=== PATIENT | male | born 1990 | race Hispanic/Latino ===

== ENCOUNTER 2016-08-12 16:41 | Inpatient (IN) | payer BC, MEDICAID ==
[2016-08-12 17:22] VITALS: BMI 30.6
[2016-08-12] MEDS ORDERED: Albuterol-Ipratrop 3 mg / 0.5 (3 ml) UD INH STA (17:53)
[2016-08-12] MEDS ORDERED: Sodium Chloride 0.9% 1,000 ML IV ONE (17:57)
[2016-08-12] MEDS ORDERED: Albuterol-Ipratrop 3 mg / 0.5 (3 ml) UD ONE (18:12)
[2016-08-12] MEDS ORDERED: Sodium Chloride 0.9% 1,000 ML ONE ×2 (18:15→18:43)
[2016-08-12 18:32] LABS: BASO # 0.1 K/uL (0.0-0.2); BASO % 0.5 % (0.0-2.0); EOS # 0.4 K/uL (0.0-0.7); EOS % 3.2 % (0.0-4.0); HEMATOCRIT 41.1 % (35.0-51.0); LYMPH # 2.1 K/uL (1.0-4.3); LYMPH % 15.4 % (20.0-40.0); MEAN CELL VOLUME 91.1 fL (80.0-94.0); MEAN CORPUSCULAR HEMOGLOBIN 30.1 pg (27.0-31.0); MEAN CORPUSCULAR HGB CONC 33.1 g/dL (33.0-37.0); MEAN PLATELET VOLUME 9.7 fL (7.2-11.7); MONO # 0.7 K/uL (0.0-0.8); MONO % 5.2 % (0.0-10.0); RED CELL DISTRIBUTION WIDTH 13.1 % (11.5-14.5); WHITE BLOOD COUNT 13.7 K/uL (4.8-10.8)
--- NOTE | 2016-08-12 18:40 | C.PDOC ---
History Of Present Illness 26 y/o male, whose PMHx includes Factor 5 Leiden Deficiency and left calf superficial vein thrombosis, presents to the ED for evaluation of left lower lobe pain and congestion, scant hemoptysis, and positionally reproducible pain to LLL region for the past 3 days. Patient was referred to the ED by his PMD to rule put pulmonary embolism. Patient underwent workup for similar complaint at [facility]; patient underwent CT Chest, Abdomen, and Pelvis on 07/05 with unremarkable results. Patient denies fever, chills, chest pain, shortness of breath. PMD: Dr. Tasha Dotson Time Seen by Provider: 08/12/16 17:41 Chief Complaint (Nursing): Cough, Cold, Congestion History Per: Patient History/Exam Limitations: no limitations Onset/Duration Of Symptoms: Days (3) Current Symptoms Are (Timing): Still Present Ear Symptoms: Bilateral: None Additional History Per: Patient Past Medical History Reviewed: Historical Data, Nursing Documentation, Vital Signs Vital Signs: Last Vital Signs Temp 97.7 F 08/12/16 17:22 Pulse 60 08/12/16 17:22 Resp 18 08/12/16 17:22 BP 123/77 08/12/16 17:22 Pulse Ox 98 08/12/16 18:46 - Medical History PMH: Deep Vein Thrombosis (left calf/ right leg phlebitis), Hypothyroidism Surgical History: No Surg Hx Family History: States: Unknown Family Hx - Social History Hx Alcohol Use: Yes Hx Substance Use: No - Immunization History Hx Tetanus Toxoid Vaccination: No Hx Influenza Vaccination: No Review Of Systems Except As Marked, All Systems Reviewed And Found Negative. Constitutional: Negative for: Fever, Chills Cardiovascular: Negative for: Chest Pain Respiratory: Positive for: Hemoptysis, Other (+left lower lobe pain, congestion ). Negative for: Shortness of Breath Physical Exam - Physical Exam Appears: Non-toxic, No Acute Distress, Other (large, obese white male ) Skin: Normal Color, Warm, Dry Head: Atraumatic Eye(s): bilateral: Normal Inspection Oral Mucosa: Moist Neck: Normal ROM, Supple Chest: Symmetrical, No Deformity, No Tenderness Cardiovascular: Rhythm Regular, No Murmur Respiratory: No Wheezing, Other (+increased breath sounds in LLL region, exacerbated by bending towards left side ) Back: Normal Inspection, No Vertebral Tenderness, No Paraspinal Tenderness Extremity: Normal ROM, Capillary Refill (less than 2 seconds ), Other (trace leg edema b/l ) Pulses: Left Dorsalis Pedis: Normal, Right Dorsalis Pedis: Normal Neurological/Psych: Oriented x3, Normal Speech, Normal Cognition Gait: Steady ED Course And Treatment - Laboratory Results Result Diagrams: 08/12/16 18:27 08/12/16 18:27 O2 Sat by Pulse Oximetry: 98 (on RA) Pulse Ox Interpretation: Normal Progress Note: CT Angio Chest, CXR, EKG ordered and reviewed. Pt received Albuterol IH, solu-medrol IV and IV Fluids. Medical Decision Making Medical Decision Making: Localized pain to posterior L lower thorax and mild hemoptysis with h/o Factor V deficiency and NOT anticoagulated in light of recent SUPERFICIAL thrombophlebitis/venous thrombosis are concerning for DVT/PE Scant wheezing- steroids and nebs given and may continue as opt (if workup otherwise neg) No leg edema, no tachycardia, and O2 Sat 98% are dubious for significant PE 1900 signed over to f/u w/u. Disposition - Disposition Disposition Time: 19:00 Condition: GOOD - Clinical Impression Clinical Impression: Chest discomfort, Cough with hemoptysis - Scribe Statement The provider has reviewed the documentation as recorded by the Scribe (Radha Alba) Provider Attestation: All medical record entries made by the Scribe were at my direction and personally dictated by me. I have reviewed the chart and agree that the record accurately reflects my personal performance of the history, physical exam, medical decision making, and the department course for this patient. I have also personally directed, reviewed, and agree with the discharge instructions and disposition. Physician Patient Turnover Patient Signed Over To: Deni Cobb Handoff Comments: f/u labs and CT and dispo appropriately.
[2016-08-12 18:41] LABS: CHLORIDE 102 mmol/L (98-107)
[2016-08-12 18:42] LABS: POTASSIUM 4.1 mmol/L (3.6-5.2); SODIUM 138 mmol/L (132-148)
[2016-08-12] MEDS ORDERED: Iodixanol 320 mg/ml 150 ml Bottle IV ONE (18:51)
[2016-08-12 18:52] LABS: BILIRUBIN,TOTAL 0.6 mg/dL (0.2-1.3); GFR AFRICAN-AMERICAN > 60
[2016-08-12 18:53] LABS: ALB/GLOB RATIO 1.7 (1.0-2.1); ALKALINE PHOSPHATASE 135 U/L (38-126); ALT/SGPT 37 U/L (21-72); AST/SGOT 31 U/L (17-59); BLOOD UREA NITROGEN 11 mg/dL (9-20); CARBON DIOXIDE 26 mmol/L (22-30); GLUCOSE,RANDOM 93 mg/dL (75-110); TOTAL PROTEIN 7.8 g/dL (6.3-8.3)
--- NOTE | 2016-08-12 21:05 | CT ---
EXAM: CT Angiography Chest With Intravenous Contrast CLINICAL HISTORY: 26 years old, male; Pain; Other: Back pain; Additional info: Factor v def, h/o dvt ? pe lll TECHNIQUE: Axial computed tomographic angiography images of the chest with intravenous contrast using pulmonary embolism protocol. This CT exam was performed using one or more of the following dose reduction techniques: automated exposure control, adjustment of the mA and/or kV according to patient size, and/or use of iterative reconstruction technique. MIP reconstructed images were created and reviewed. Coronal and sagittal reformatted images were created and reviewed. CONTRAST: 100 mL of visi administered intravenously. COMPARISON: No relevant prior studies available. FINDINGS: Limitations: Suboptimal timing of bolus. Pulmonary arteries: Several filling defects within segmental, subsegmental branches. No saddle embolus. Aorta: No aneurysm. No dissection. Lungs: Mild patchy airspace disease posterior periphery LEFT lower lobe. Minimal atelectasis. Pleural space: Small to moderate LEFT pleural effusion. No pneumothorax. Heart: No cardiomegaly. No significant pericardial effusion. Bones/joints: No acute fracture. No dislocation. Soft tissues: Unremarkable. Lymph nodes: Apparent 1.7 x 1.1 x 0.8 cm lymph node vs mass contiguous with midesophagus. IMPRESSION: 1. Pulmonary emboli. 2. LEFT pleural effusion with probable pulmonary infarct. Pneumonia not excluded. 3. Apparent lymph node vs mass contiguous with esophagus. Clinical correlation is needed. 4. Incidental/non-acute findings are described above.
[2016-08-12] MEDS ORDERED: Heparin 25,000units in D5W 250 ML IV ONE (22:29)
[2016-08-12] MEDS ORDERED: Heparin25000 units/250ml 1/2NS 25,000 UNITS/250 ML BAG IV ONE (22:51)
[2016-08-12 22:58] LABS: INR 1.1
[2016-08-13 06:40] LABS: BASO % 0.2 % (0.0-2.0); EOS % 0.1 % (0.0-4.0); HEMATOCRIT 43.6 % (35.0-51.0); LYMPH # 1.2 K/uL (1.0-4.3); LYMPH % 9.1 % (20.0-40.0); MEAN CELL VOLUME 91.2 fL (80.0-94.0); MEAN CORPUSCULAR HEMOGLOBIN 30.1 pg (27.0-31.0); MEAN PLATELET VOLUME 10.2 fL (7.2-11.7); MONO # 0.3 K/uL (0.0-0.8); MONO % 2.1 % (0.0-10.0); PLATELET COUNT 255 K/uL (130-400); WHITE BLOOD COUNT 12.6 K/uL (4.8-10.8)
--- NOTE | 2016-08-13 06:56 | CP.PCM.CON ---
<BritoTarsha haas - Last Filed: 08/13/16 06:51> History of Present Illness - History of Present Illness History of Present Illness: Thoracic Surgery - Dr. Lawrence This is a 26yo M recently dx w/ Factor 5 Leiden deficiency after developing L calf superficial vein thrombosis, who presented to ED last night w/ worsening Chest pain, Congestion and SOB. Pt states that the pain began about 3 days ago , located in the L lower chest and radiating to the back, worse when he leans forward. He had associated chest congestion, mild cough w/ hemoptysis, and yesterday he became increasingly SOB. Pt states he went to his PMD office and was instructed to go to the ED. Pt denies any Fever, chills, Nausea, Vomiting, Diaphoresis. PMH: Hypothyroid, Asthma, Factor V Leiden PSH: Vein procedure Meds: Levothyroxine NKDA Family Hx - pt states his sister also had a DVT/PE in the past and she has not been worked up for Factor V In the ED pt vitals were all stable and WNL, no tachycardiac and O2 sats 98% on room air. Labs significant for a wbc of 13.6 and elevated d-dimer. A CT chest PE protocol was done which demonstrated multiple filling defects, no saddle embolus, small L effusion, and prob pulmonary infarction. Pt was admitted to the medical service and thoracic surgery consulted. Review of Systems - Review of Systems All systems: reviewed and no additional remarkable complaints except (as per HPI ) Past Patient History - Infectious Disease Hx of Infectious Diseases: None - Past Medical History & Family History Past Medical History?: Yes - Past Social History Smoking Status: Current Some Days Smoker - CARDIAC Hx Cardiac Disorders: No - PULMONARY Hx Asthma: Yes Hx Pneumonia: Yes Hx Pulmonary Embolism: Yes (This Admission 08/12/16) - NEUROLOGICAL Hx Neurological Disorder: No - HEENT Hx HEENT Problems: No - RENAL Hx Chronic Kidney Disease: No - ENDOCRINE/METABOLIC Hx Hypothyroidism: Yes - HEMATOLOGICAL/ONCOLOGICAL Hx Blood Disorders: Yes Other/Comment: Factor 5 Leiden Defeciency. - INTEGUMENTARY Hx Dermatological Problems: No - MUSCULOSKELETAL/RHEUMATOLOGICAL Hx Falls: No - GASTROINTESTINAL Hx Gastrointestinal Disorders: No - GENITOURINARY/GYNECOLOGICAL Hx Genitourinary Disorders: No - PSYCHIATRIC Hx Substance Use: No - SURGICAL HISTORY Hx Surgeries: Yes Hx Tonsillectomy: Yes (1999) - ANESTHESIA Hx Anesthesia: Yes Hx Anesthesia Reactions: No Hx Malignant Hyperthermia: No Has any member of the family had a problem w/ anesthesia?: No Meds Allergies/Adverse Reactions: Allergies Allergy/AdvReac Type Severity Reaction Status Date / Time Seasonal Allergy Allergy ITCHING Uncoded 08/13/16 02:41 - Medications Medications: Current Medications Albuterol/Ipratropium (Duoneb 3 Mg/0.5 Mg (3 Ml) Ud) 3 ml INH RQ6 [place] Pneumococcal Polyvalent Vaccine (Pneumovax 23 Vaccine) 0.5 ml IM .ONCE ONE Stop: 08/15/16 11:01 Physical Exam - Constitutional Appears: Well, No Acute Distress - Head Exam Head Exam: ATRAUMATIC, NORMAL INSPECTION, NORMOCEPHALIC - Eye Exam Eye Exam: EOMI, Normal appearance - ENT Exam ENT Exam: Mucous Membranes Moist, Normal Exam - Respiratory Exam Respiratory Exam: Clear to Auscultation Bilateral, NORMAL BREATHING PATTERN. absent: Respiratory Distress - Cardiovascular Exam Cardiovascular Exam: REGULAR RHYTHM. absent: Tachycardia - Extremities Exam Extremities exam: Positive for: normal inspection. Negative for: calf tenderness, pedal edema - Neurological Exam Neurological exam: Alert, Oriented x3 - Psychiatric Exam Psychiatric exam: Normal Affect, Normal Mood - Skin Skin Exam: Dry, Intact Results - Vital Signs Recent Vital Signs: Last Vital Signs Temp 98.4 F 08/13/16 01:10 Pulse 65 08/13/16 03:51 Resp 20 08/13/16 01:10 BP 161/77 H 08/13/16 01:10 Pulse Ox 97 08/13/16 01:10 - Labs Result Diagrams: 08/13/16 06:37 08/12/16 18:27 Labs: Laboratory Results - last 24 hr 08/12/16 08/13/16 22:50 06:37 WBC 12.6 H RBC 4.78 Hgb 14.4 Hct 43.6 MCV 91.2 MCH 30.1 MCHC 33.0 RDW 13.0 Plt Count 255 MPV 10.2 Neut % (Auto) 88.5 H Lymph % (Auto) 9.1 L [place] % (Auto) 2.1 Eos % (Auto) 0.1 Baso % (Auto) 0.2 Neut # 11.2 H Lymph # 1.2 [place] # 0.3 Eos # 0.0 Baso # 0.0 PT 12.7 H INR 1.1 APTT 30 - Imaging and Cardiology CT scan - chest Status: Image reviewed by me, Report reviewed by me Assessment & Plan - Assessment and Plan (Free Text) Assessment: 26 yo M w/ recent dx of factor V leiden def. and superficial vein thrombosis, now w/ Pulmonary Emboli -Heparin Drip per pe protocol -No Abx needed at this time -Maintain O2 sat 95-99%, currently on RA -F/U Hematology, Dr. Romano -No surgical intervention needed DW Dr Melinda Brito PGY2 <Jasbir Lawrence - Last Filed: 08/13/16 13:52> Meds - Medications Medications: Current Medications Albuterol/Ipratropium (Duoneb 3 Mg/0.5 Mg (3 Ml) Ud) 3 ml INH RQ6 S[place] Last Admin: 08/13/16 07:37 Dose: 3 ml Heparin Sodium/Sodium Chloride (Heparin 56347 Units/250ml 1/2 Normal Saline) 25 ,000 units in 250 mls @ 21.963 mls/hr IV .[id number] ONE; 18 UNITS/KG/HR PRN Reason: Protocol Stop: 08/13/16 19:37 Last Admin: 08/13/16 10:20 Dose: 18 units/kg/hr, 21.963 mls/hr Pneumococcal Polyvalent Vaccine (Pneumovax 23 Vaccine) 0.5 ml IM .ONCE ONE Stop: 08/15/16 11:01 Results - Vital Signs Recent Vital Signs: Last Vital Signs Temp 97.6 F 08/13/16 08:19 Pulse 90 08/13/16 09:04 Resp 18 08/13/16 08:19 BP 130/88 08/13/16 08:19 Pulse Ox 97 08/13/16 08:19 - Labs Result Diagrams: 08/13/16 06:37 08/13/16 06:37 Labs: Laboratory Results - last 24 hr 08/12/16 08/13/16 08/13/16 22:50 06:37 06:37 WBC 12.6 H RBC 4.78 Hgb 14.4 Hct 43.6 MCV 91.2 MCH 30.1 MCHC 33.0 RDW 13.0 Plt Count 255 MPV 10.2 Neut % (Auto) 88.5 H Lymph % (Auto) 9.1 L [place] % (Auto) 2.1 Eos % (Auto) 0.1 Baso % (Auto) 0.2 Neut # 11.2 H Lymph # 1.2 [place] # 0.3 Eos # 0.0 Baso # 0.0 Neutrophils % (Manual) 90 H Band Neutrophils % 1 Lymphocytes % (Manual) 8 L Monocytes % (Manual) 1 Platelet Estimate Normal RBC Morphology Normal PT 12.7 H 13.5 H INR 1.1 1.2 APTT 30 139 H* D Sodium Potassium Chloride Carbon Dioxide Anion Gap BUN Creatinine Est GFR ( Amer) Est GFR (Non-Af Amer) Random Glucose Calcium Total Bilirubin AST ALT Alkaline Phosphatase Total Protein Albumin Globulin Albumin/Globulin Ratio Triglycerides Cholesterol LDL Cholesterol Direct HDL Cholesterol TSH 3rd Generation Urine Color Urine Clarity Urine pH Ur Specific [place] Urine Protein Urine Glucose (UA) Urine Ketones Urine Blood Urine Nitrate Urine Bilirubin Urine Urobilinogen Ur Leukocyte Esterase Urine WBC (Auto) Urine RBC (Auto) 08/13/16 08/13/16 06:37 07:08 WBC RBC Hgb Hct MCV MCH MCHC RDW Plt Count MPV Neut % (Auto) Lymph % (Auto) [place] % (Auto) Eos % (Auto) Baso % (Auto) Neut # Lymph # [place] # Eos # Baso # Neutrophils % (Manual) Band Neutrophils % Lymphocytes % (Manual) Monocytes % (Manual) Platelet Estimate RBC Morphology PT INR APTT Sodium 136 Potassium 4.4 Chloride 100 Carbon Dioxide 26 Anion Gap 15 BUN 10 Creatinine 0.6 L Est GFR ( Amer) > 60 Est GFR (Non-Af Amer) > 60 Random Glucose 141 H Calcium 9.3 Total Bilirubin 0.5 AST 22 ALT 33 Alkaline Phosphatase 141 H Total Protein 8.1 Albumin 5.1 H Globulin 3.0 Albumin/Globulin Ratio 1.7 Triglycerides 44 Cholesterol 181 LDL Cholesterol Direct 111 HDL Cholesterol 56 TSH 3rd Generation 0.79 Urine Color Yellow Urine Clarity Clear Urine pH 6.0 Ur Specific [place] 1.023 Urine Protein Negative Urine Glucose (UA) 1+ H Urine Ketones Negative Urine Blood Negative Urine Nitrate Negative Urine Bilirubin Negative Urine Urobilinogen Normal Ur Leukocyte Esterase Neg Urine WBC (Auto) < 1 Urine RBC (Auto) < 1 Addendum Addendum: 08/13/16 12:54 Reason for consultation: PE and pleural effusion. Requested by DR. Mark Garcia. Pt s/e. Progress notes and imaging stuidies reviewed. This 26 yo male with significant pmh of Factor V deficiency presented with 3d hx of chest pain,right and sob. CT angio: distal brs pulmonary artery filling defects and left pleural effusion, (moderate). The effusion will resolve spontaneously without any interventions over the next several wks. Will require drainage i provided it gets larger. I am incline to recommend daily cxr for 4 days to monitor effusion. a/p: PE Left pleural effusion Daily cxr for 4 days
[2016-08-13 06:59] LABS: CHLORIDE 100 mmol/L (98-107); POTASSIUM 4.4 mmol/L (3.6-5.2); SODIUM 136 mmol/L (132-148)
[2016-08-13 07:01] LABS: ALB/GLOB RATIO 1.7 (1.0-2.1); AST/SGOT 22 U/L (17-59); BILIRUBIN,TOTAL 0.5 mg/dL (0.2-1.3); CARBON DIOXIDE 26 mmol/L (22-30); CHOLESTEROL 181 mg/dL (0-199); GFR AFRICAN-AMERICAN > 60; TOTAL PROTEIN 8.1 g/dL (6.3-8.3)
[2016-08-13 07:02] LABS: ALKALINE PHOSPHATASE 141 U/L (38-126); ALT/SGPT 33 U/L (21-72); BLOOD UREA NITROGEN 10 mg/dL (9-20); CALCIUM 9.3 mg/dl (8.6-10.4); GLUCOSE,RANDOM 141 mg/dL (75-110)
[2016-08-13 07:26] LABS: INR 1.2
[2016-08-13 07:28] LABS: THYROID STIMULATING HORMONE 0.79 mIU/L (0.46-4.68)
[2016-08-13] MEDS: Albuterol-Ipratrop 3 mg / 0.5 (3 ml) UD INH SCH ×3 (07:37→19:49)
[2016-08-13] MEDS ORDERED: Heparin25000 units/250ml 1/2NS 25,000 UNITS/250 ML BAG IV ONE (08:15)
[2016-08-13 08:27] LABS: URINE BILIRUBIN NEGATIVE (NEGATIVE); URINE BLOOD NEGATIVE (NEGATIVE); URINE COLOR Yellow (YELLOW); URINE GLUCOSE (UA) 1+ mg/dL (Normal); URINE KETONE NEGATIVE (NEGATIVE); URINE LEUKOCYTE ESTERASE NEG Leu/uL (Negative); URINE PROTEIN NEGATIVE (NEGATIVE); URINE UROBILINOGEN NORMAL mg/dL (0.2-1.0)
[2016-08-13 08:28] LABS: RBC URINE < 1 /hpf (0-3); WBC URINE < 1 /hpf (0-5)
--- NOTE | 2016-08-13 08:36 | RAD ---
PROCEDURE: CHEST RADIOGRAPH, 1 VIEW HISTORY: SOB COMPARISON: None available. FINDINGS: LUNGS: Mild venous congestion. Patchy increased markings at the left lung base. Few scattered nodular densities at the left lung base. PLEURA: No pneumothorax or pleural fluid seen. CARDIOVASCULAR: Normal. OSSEOUS STRUCTURES: No significant abnormalities. VISUALIZED UPPER ABDOMEN: Normal. OTHER FINDINGS: None. IMPRESSION: Mild venous congestion. Patchy increased markings at the left lung base. Few scattered nodular densities at the left lung base.
[2016-08-13 08:37] LABS: NEUTROPHIL 90 % (50-75); TOTAL CELLS COUNTED 100
--- NOTE | 2016-08-13 11:21 | CP.PCM.PN ---
Subjective - Date & Time of Evaluation Date of Evaluation: 08/13/16 Time of Evaluation: 10:45 Objective - Vital Signs/Intake and Output Vital Signs (last 24 hours): Temp Pulse Resp BP Pulse Ox 97.6 F 90 18 130/88 97 08/13/16 08:19 08/13/16 09:04 08/13/16 08:19 08/13/16 08:19 08/13/16 08:19 Intake and Output: 08/13/16 08/13/16 06:59 18:59 Intake Total 369.6 Balance 369.6 - Medications Medications: Current Medications Albuterol/Ipratropium (Duoneb 3 Mg/0.5 Mg (3 Ml) Ud) 3 ml INH RQ6 SENIA Last Admin: 08/13/16 07:37 Dose: 3 ml Heparin Sodium/Sodium Chloride (Heparin 94570 Units/250ml 1/2 Normal Saline) 25 ,000 units in 250 mls @ 21.963 mls/hr IV .[id number] ONE; 18 UNITS/KG/HR PRN Reason: Protocol Stop: 08/13/16 19:37 Last Admin: 08/13/16 10:20 Dose: 18 units/kg/hr, 21.963 mls/hr Pneumococcal Polyvalent Vaccine (Pneumovax 23 Vaccine) 0.5 ml IM .ONCE ONE Stop: 08/15/16 11:01 - Labs Labs: 08/13/16 06:37 08/13/16 06:37 PT 13.5 SECONDS (9.7-12.2) H 08/13/16 06:37 INR 1.2 08/13/16 06:37 APTT 139 SECONDS (21-34) H* D 08/13/16 06:37
--- NOTE | 2016-08-13 18:19 | CP.PCM.CON ---
History of Present Illness - History of Present Illness History of Present Illness: 26 year old male with a history of hypothyroidism, chronic thrombophlebitis, factor V leiden mutation not on anticoagulation, admitted with shortness of breath and chest pain, found to have a pulmonary embolism. The patient reports to chronic phlebitis in his lower extremities which prompted an inherited thrombophilia work up. He was found to have factor V Leiden mutation and placed on aspirin daily. He notes he began to experience sharp chest pain with shortness of breath which prompted him to come to the ER. A CT angio of the chest revealed pulmonary embolism with possible pulmonary infarct, pleural effusion, and questionable mass or lymph node involving the esophagus. He was placed on a heparin drip and notes his symptoms have improved. Past medical history: hypothyroidism, Factor V Leiden mutation Past surgical history: Tonsillectomy Family history: Denies hematologic and oncologic problems in the family Social history: Denies tobacco, drinks alcohol socially, denies illicit drug use. Allergies: NKDA Review of systems: All remaining review of systems including HEENT, cardiovascular, respiratory, gastrointestinal, genitourinary, musculoskeletal, dermatologic, neurologic are negative unless mentioned in the HPI. Past Patient History - Infectious Disease Hx of Infectious Diseases: None - Past Medical History & Family History Past Medical History?: Yes - Past Social History Smoking Status: Current Some Days Smoker - CARDIAC Hx Cardiac Disorders: No - PULMONARY Hx Asthma: Yes Hx Pneumonia: Yes Hx Pulmonary Embolism: Yes (This Admission 08/12/16) - NEUROLOGICAL Hx Neurological Disorder: No - HEENT Hx HEENT Problems: No - RENAL Hx Chronic Kidney Disease: No - ENDOCRINE/METABOLIC Hx Hypothyroidism: Yes - HEMATOLOGICAL/ONCOLOGICAL Hx Blood Disorders: Yes Other/Comment: Factor 5 Leiden Defeciency. - INTEGUMENTARY Hx Dermatological Problems: No - MUSCULOSKELETAL/RHEUMATOLOGICAL Hx Falls: No - GASTROINTESTINAL Hx Gastrointestinal Disorders: No - GENITOURINARY/GYNECOLOGICAL Hx Genitourinary Disorders: No - PSYCHIATRIC Hx Substance Use: No - SURGICAL HISTORY Hx Surgeries: Yes Hx Tonsillectomy: Yes (1999) - ANESTHESIA Hx Anesthesia: Yes Hx Anesthesia Reactions: No Hx Malignant Hyperthermia: No Has any member of the family had a problem w/ anesthesia?: No Meds Allergies/Adverse Reactions: Allergies Allergy/AdvReac Type Severity Reaction Status Date / Time Seasonal Allergy Allergy ITCHING Uncoded 08/13/16 02:41 - Medications Medications: Current Medications Albuterol/Ipratropium (Duoneb 3 Mg/0.5 Mg (3 Ml) Ud) 3 ml INH RQ6 [place] Last Admin: 08/13/16 13:28 Dose: 3 ml Heparin Sodium/Sodium Chloride (Heparin 59492 Units/250ml 1/2 Normal Saline) 25 ,000 units in 250 mls @ 21.963 mls/hr IV .[id number] ONE; 18 UNITS/KG/HR PRN Reason: Protocol Stop: 08/13/16 19:37 Last Admin: 08/13/16 10:20 Dose: 18 units/kg/hr, 21.963 mls/hr Levothyroxine Sodium (Synthroid) 250 mcg PO DAILY@0630 [place] Pneumococcal Polyvalent Vaccine (Pneumovax 23 Vaccine) 0.5 ml IM .ONCE ONE Stop: 08/15/16 11:01 Physical Exam - Head Exam Head Exam: ATRAUMATIC - Eye Exam Eye Exam: Normal appearance - ENT Exam ENT Exam: Mucous Membranes Dry - Respiratory Exam Respiratory Exam: NORMAL BREATHING PATTERN - Cardiovascular Exam Cardiovascular Exam: +S1, +S2 - GI/Abdominal Exam GI & Abdominal Exam: Normal Bowel Sounds - Extremities Exam Extremities exam: Positive for: pedal edema - Neurological Exam Neurological exam: Oriented x3 - Psychiatric Exam Psychiatric exam: Normal Affect, Normal Mood - Skin Skin Exam: Warm Results - Vital Signs Recent Vital Signs: Last Vital Signs Temp 98.1 F 08/13/16 16:52 Pulse 79 08/13/16 16:52 Resp 20 08/13/16 16:52 BP 125/65 08/13/16 16:52 Pulse Ox 95 08/13/16 16:52 - Labs Result Diagrams: 08/13/16 06:37 08/13/16 06:37 Labs: Laboratory Results - last 24 hr 08/12/16 08/13/16 08/13/16 22:50 06:37 06:37 WBC 12.6 H RBC 4.78 Hgb 14.4 Hct 43.6 MCV 91.2 MCH 30.1 MCHC 33.0 RDW 13.0 Plt Count 255 MPV 10.2 Neut % (Auto) 88.5 H Lymph % (Auto) 9.1 L [place] % (Auto) 2.1 Eos % (Auto) 0.1 Baso % (Auto) 0.2 Neut # 11.2 H Lymph # 1.2 [place] # 0.3 Eos # 0.0 Baso # 0.0 Neutrophils % (Manual) 90 H Band Neutrophils % 1 Lymphocytes % (Manual) 8 L Monocytes % (Manual) 1 Platelet Estimate Normal RBC Morphology Normal PT 12.7 H 13.5 H INR 1.1 1.2 APTT 30 139 H* D Sodium Potassium Chloride Carbon Dioxide Anion Gap BUN Creatinine Est GFR ( Amer) Est GFR (Non-Af Amer) Random Glucose Calcium Total Bilirubin AST ALT Alkaline Phosphatase Total Protein Albumin Globulin Albumin/Globulin Ratio Triglycerides Cholesterol LDL Cholesterol Direct HDL Cholesterol TSH 3rd Generation Urine Color Urine Clarity Urine pH Ur Specific [place] Urine Protein Urine Glucose (UA) Urine Ketones Urine Blood Urine Nitrate Urine Bilirubin Urine Urobilinogen Ur Leukocyte Esterase Urine WBC (Auto) Urine RBC (Auto) 08/13/16 08/13/16 08/13/16 06:37 07:08 14:39 WBC RBC Hgb Hct MCV MCH MCHC RDW Plt Count MPV Neut % (Auto) Lymph % (Auto) [place] % (Auto) Eos % (Auto) Baso % (Auto) Neut # Lymph # [place] # Eos # Baso # Neutrophils % (Manual) Band Neutrophils % Lymphocytes % (Manual) Monocytes % (Manual) Platelet Estimate RBC Morphology PT INR APTT 60 H D Sodium 136 Potassium 4.4 Chloride 100 Carbon Dioxide 26 Anion Gap 15 BUN 10 Creatinine 0.6 L Est GFR ( Amer) > 60 Est GFR (Non-Af Amer) > 60 Random Glucose 141 H Calcium 9.3 Total Bilirubin 0.5 AST 22 ALT 33 Alkaline Phosphatase 141 H Total Protein 8.1 Albumin 5.1 H Globulin 3.0 Albumin/Globulin Ratio 1.7 Triglycerides 44 Cholesterol 181 LDL Cholesterol Direct 111 HDL Cholesterol 56 TSH 3rd Generation 0.79 Urine Color Yellow Urine Clarity Clear Urine pH 6.0 Ur Specific [place] 1.023 Urine Protein Negative Urine Glucose (UA) 1+ H Urine Ketones Negative Urine Blood Negative Urine Nitrate Negative Urine Bilirubin Negative Urine Urobilinogen Normal Ur Leukocyte Esterase Neg Urine WBC (Auto) < 1 Urine RBC (Auto) < 1 Assessment & Plan (1) Pulmonary embolism Assessment and Plan: patient has hypercoagulable state from factor V Leiden mutation agree with therapeutic anticoagulation pt will require lifelong therapeutic anticoagulation I discussed the different anticoagulants available, as well as side effect profile of each. The patient would prefer one of the new oral anticoagulants ( xarleto, pradaxa, eliquis). I will check a lower extremity venous duplex to rule out DVT. Status: Acute (2) Esophageal abnormality Assessment and Plan: mass vs. lymph node endoscopy for further evaluation; can be done as outpatient at some point Status: Acute (3) Coagulopathy Assessment and Plan: secondary to anticoagulation Status: Acute (4) Leukocytosis Assessment and Plan: likely reactive from PE Thank you for this interesting consult. Status: Acute
--- NOTE | 2016-08-13 19:29 | HP ---
CHIEF COMPLAINT: Progressive worsening of shortness of breath and pleuritic chest pain progressively getting worse over the past few days. HISTORY OF PRESENT ILLNESS: The patient is a 26-year-old male with past medical history of factor V Leiden deficiency, which was recently diagnosed about 3 months ago when he started having superficial phlebitis for which he had seen his primary care physician, Dr. Tasha Dotson. He was also referred to a vein specialist who did the laser therapy for his left leg initially and then he noticed superfi cial phlebitis in the right leg; at which point, the patient was referred to hematology. Hematology did all the workup including CT scan of the chest, abdomen and pelvis, and the patient was diagnosed with factor V Leiden deficiency, and the patient was told to take aspirin since there was no evidence of any thrombolysis in the body so the patient was advised to take aspirin. But about a month ago, the patient started having chest pain, pleuritic in nature, cough, congestion. Initially, he thought he was having URI symptoms as the patient has history of asthma, but for the past few days, his pleu ritic chest pain is getting worse and he had blood while he was coughing about a week ago. His short ness of breath was worse yesterday for which he was evaluated by PMD and PMD sent the patient for [facility] x-ray. The patient came to the ED for further evaluation. In the Emergency Room, the patient underwent CT scan of the chest, which was consistent with bilatera l pulmonary emboli with infarction and the patient is being admitted for further management. When I examined the patient, the patient denies any headache, dizziness. Denies any chest pain, shortness o f breath or wheezing. Denies any nausea, vomiting, abdominal pain, diarrhea or constipation. Denies any urinary complaints. Denies any leg swelling or joint swelling. Denies any other neurologic sym ptoms. PAST MEDICAL HISTORY: Hypothyroidism, asthma, factor V Leiden deficiency and superficial thrombophle bitis. PAST SURGICAL HISTORY: Underwent lymphadenectomy when he was young. FAMILY HISTORY: Hypothyroidism, asthma and pulmonary embolism in the sister and aunt, mother has his tory of breast CA and underwent hysterectomy and [employer] disorders. PERSONAL HISTORY: He is a teacher in middle school. SOCIAL HISTORY: Denies smoking, drinks alcohol socially. Denies any other drug abuse. He has seaso nal allergies. HOME MEDICATIONS: Include Synthroid 250 mcg p.o. daily and aspirin 81 mg daily. REVIEW OF SYSTEMS: As described in history of present illness. All other systems reviewed and were found to be negative. PHYSICAL EXAMINATION: GENERAL: Well-built, well-nourished male, lying in bed, in no acute distress. VITAL SIGNS: Blood pressure 130/88, pulse 90, respiration 18, temperature 97.6 degrees Fahrenheit, O 2 sats 97% on 2 liters nasal cannula. HEENT: Pupils equal, round, reacting to light and accommodation. Extraocular muscles intact. No ic terus, no pallor. No oral thrush. No pharyngeal congestion. NECK: Supple. No JVD. CHEST: Moving equally bilaterally on respiration. LUNGS: Bilateral vesicular breath sounds. No wheezing, no rhonchi. CARDIOVASCULAR: S1, S2 present, regular. ABDOMEN: Soft, nontender. Bowel sounds present. No guarding, no rigidity, no rebound tenderness no jose. CENTRAL NERVOUS SYSTEM: Alert, awake, oriented x 3. No focal deficits noted. EXTREMITIES: No edema. Palpable peripheral pulses. LABORATORY DATA: Labs done from ED: WBC 13.7, hemoglobin 13.6, hematocrit 41.1, platelets 261. D-d ruth 1447. Sodium 138, potassium 4.1, chloride 102, bicarbonate 26, BUN 11, creatinine 0.7, glucose 93, calcium 9.0, total bilirubin 0.6, AST 31, ALT 37, alkaline phosphatase 135, total protein 7.8, al bumin 4.5. Troponin less than 0.010. Chest CT consistent with pulmonary emboli, left pleural effusi on with probable pulmonary infarct, apparent lymph nodes versus mass with esophagus. ASSESSMENT: A young male with history of hypothyroidism, asthma, recently diagnosed factor V Leiden deficiency, admitted for pleuritic chest pain, found to be having PE and the patient is being admitte d for further management. 1. Pulmonary embolization probably secondary to factor V Leiden deficiency. 2. Left pleural effusion. 3. Hypercoagulable state. 4. Hypothyroidism. 5. History of asthma. PLAN: The patient is being admitted to telemetry. The patient is started on IV heparin with protoco l. We will obtain a hematology consult with Dr. Romano. We will obtain pulmonary evaluation. We alvin l continue with his Synthroid. Thoracic surgery was contacted by ED physician who does not recommend any surgical intervention at this time. I will add further recommendation as his clinical course pr spencer. Kate Olsen MD cc: [id number] TT: 08/13/2016 19:29:13 zehra
[2016-08-13] MEDS: Heparin25000 units/250ml 1/2NS 25,000 UNITS/250 ML BAG IV PRN (21:19)
[2016-08-14] MEDS: Heparin25000 units/250ml 1/2NS 25,000 UNITS/250 ML BAG IV PRN (01:39)
[2016-08-14] MEDS: Albuterol-Ipratrop 3 mg / 0.5 (3 ml) UD INH SCH ×4 (02:46→19:47)
[2016-08-14] MEDS: Levothyroxine 125 MCG TAB PO SCH (06:51)
--- NOTE | 2016-08-14 08:02 | CP.PCM.PN ---
Subjective - Date & Time of Evaluation Date of Evaluation: 08/14/16 Time of Evaluation: 08:01 - Subjective Subjective: CT Sx: Dr Lawrence Pt S&E. NAEO. Resting comfortably. Denies sob, cp, f/c, n/v. No symptoms. Currently on heparin drip Objective - Vital Signs/Intake and Output Vital Signs (last 24 hours): Temp Pulse Resp BP Pulse Ox 98.3 F 80 20 146/78 98 08/14/16 04:10 08/14/16 07:32 08/14/16 04:10 08/14/16 04:10 08/14/16 04:10 Intake and Output: 08/14/16 08/14/16 06:59 18:59 Intake Total 250 Balance 250 - Medications Medications: Current Medications Albuterol/Ipratropium (Duoneb 3 Mg/0.5 Mg (3 Ml) Ud) 3 ml INH RQ6 [facility] Last Admin: 08/14/16 07:32 Dose: 3 ml Heparin Sodium/Sodium Chloride (Heparin 12681 Units/250ml 1/2 Normal Saline) 25 ,000 units in 250 mls @ 0 mls/hr IV .Q0M PRN; Protocol; Per Protocol PRN Reason: PROTOCOL Stop: 08/14/16 12:00 Last Admin: 08/14/16 01:39 Dose: 24.2 mls/hr Levothyroxine Sodium (Synthroid) 250 mcg PO DAILY@0630 [facility] Last Admin: 08/14/16 06:51 Dose: 250 mcg Pneumococcal Polyvalent Vaccine (Pneumovax 23 Vaccine) 0.5 ml IM .ONCE ONE Stop: 08/15/16 11:01 - Labs Labs: 08/13/16 06:37 08/13/16 06:37 PT 13.5 SECONDS (9.7-12.2) H 08/13/16 06:37 INR 1.2 08/13/16 06:37 APTT 54 SECONDS (21-34) H D 08/13/16 21:19 - Constitutional Appears: Non-toxic, No Acute Distress - Respiratory Exam Respiratory Exam: absent: Accessory Muscle Use, Respiratory Distress - Cardiovascular Exam Cardiovascular Exam: REGULAR RHYTHM. absent: Tachycardia - GI/Abdominal Exam GI & Abdominal Exam: Soft, Normal Bowel Sounds. absent: Tenderness - Neurological Exam Neurological Exam: Alert, Awake, Oriented x3 - Psychiatric Exam Psychiatric exam: Normal Affect, Normal Mood Assessment and Plan - Assessment and Plan (Free Text) Assessment: 26M w/ hx of Factor V Leiden, presents with PE Plan: cont heparin drip/outpatient coagulation per Dr Romano No need for surgical intervention please re-consult if necessary D/W Dr Melinda Cristobal, PGY2
[2016-08-14] MEDS ORDERED: Heparin25000 units/250ml 1/2NS 25,000 UNITS/250 ML BAG IV PRN (09:15)
--- NOTE | 2016-08-14 10:40 | RAD ---
HISTORY: eval for effusion progression COMPARISON: 08/12/2016 FINDINGS: LUNGS: Examination limited. Right costophrenic angle not included on this film. No pulmonary infiltrate. PLEURA: No evidence of effusion. Cannot rule out small right pleural effusion due to failure to include right costophrenic angle. No pneumothorax. CARDIOVASCULAR: Normal. OSSEOUS STRUCTURES: No significant abnormalities. VISUALIZED UPPER ABDOMEN: Normal. OTHER FINDINGS: None. IMPRESSION: Unremarkable examination. Limited due to failure to include right costophrenic angle.
--- NOTE | 2016-08-14 11:59 | CP.PCM.PN ---
Subjective - Date & Time of Evaluation Date of Evaluation: 08/14/16 Time of Evaluation: 11:30 - Subjective Subjective: Progress note dictated #[id number] Objective - Vital Signs/Intake and Output Vital Signs (last 24 hours): Temp Pulse Resp BP Pulse Ox 97.3 F L 80 20 138/72 95 08/14/16 07:00 08/14/16 07:32 08/14/16 07:00 08/14/16 07:00 08/14/16 07:00 Intake and Output: 08/14/16 08/14/16 06:59 18:59 Intake Total 250 Balance 250 - Medications Medications: Current Medications Albuterol/Ipratropium (Duoneb 3 Mg/0.5 Mg (3 Ml) Ud) 3 ml INH RQ6 [facility] Last Admin: 08/14/16 07:32 Dose: 3 ml Heparin Sodium/Sodium Chloride (Heparin 83333 Units/250ml 1/2 Normal Saline) 25 ,000 units in 250 mls @ 20.499 mls/hr IV .[id number] PRN; Protocol; 16.8 UNITS/KG/ HR PRN Reason: PROTOCOL Stop: 08/14/16 12:00 Last Admin: 08/14/16 10:22 Dose: 16.8 units/kg/hr, 20.499 mls/hr Levothyroxine Sodium (Synthroid) 250 mcg PO DAILY@0630 [facility] Last Admin: 08/14/16 06:51 Dose: 250 mcg Pneumococcal Polyvalent Vaccine (Pneumovax 23 Vaccine) 0.5 ml IM .ONCE ONE Stop: 08/15/16 11:01 - Labs Labs: 08/13/16 06:37 08/13/16 06:37 PT 13.5 SECONDS (9.7-12.2) H 08/13/16 06:37 INR 1.2 08/13/16 06:37 APTT 144 SECONDS (21-34) H* D 08/14/16 07:48
--- NOTE | 2016-08-14 13:53 | CP.PCM.CON ---
History of Present Illness - History of Present Illness History of Present Illness: Reason for consultation: Pulmonary embolism 26yo M recently dx w/ Factor 5 Leiden deficiency after developing L calf superficial vein thrombosis, who presented to ED last night worsening Chest pain , Congestion and SOB. Pt states that the pain began about 3 days ago, located in the L lower chest and radiating to the back, worse when he leans forward. He had associated chest congestion, mild cough w/ hemoptysis, and yesterday he became increasingly SOB. Pt states he went to his PMD office and was instructed to go to the ED. CT angiogram in the emergency room consistent with multiple filling defects. PMH: Hypothyroid, Asthma, Factor V Leiden PSH: Vein procedure Meds: Levothyroxine NKDA Family Hx - pt states his sister also had a DVT/PE in the past and she has not been worked up for Factor V Review of Systems - Review of Systems All systems: reviewed and no additional remarkable complaints except (Shortness of breath and chest discomfort) Past Patient History - Infectious Disease Hx of Infectious Diseases: None - Past Medical History & Family History Past Medical History?: Yes - Past Social History Smoking Status: Current Some Days Smoker - CARDIAC Hx Cardiac Disorders: No - PULMONARY Hx Asthma: Yes Hx Pneumonia: Yes Hx Pulmonary Embolism: Yes (This Admission 08/12/16) - NEUROLOGICAL Hx Neurological Disorder: No - HEENT Hx HEENT Problems: No - RENAL Hx Chronic Kidney Disease: No - ENDOCRINE/METABOLIC Hx Hypothyroidism: Yes - HEMATOLOGICAL/ONCOLOGICAL Hx Blood Disorders: Yes Other/Comment: Factor 5 Leiden Defeciency. - INTEGUMENTARY Hx Dermatological Problems: No - MUSCULOSKELETAL/RHEUMATOLOGICAL Hx Falls: No - GASTROINTESTINAL Hx Gastrointestinal Disorders: No - GENITOURINARY/GYNECOLOGICAL Hx Genitourinary Disorders: No - PSYCHIATRIC Hx Substance Use: No - SURGICAL HISTORY Hx Surgeries: Yes Hx Tonsillectomy: Yes (1999) - ANESTHESIA Hx Anesthesia: Yes Hx Anesthesia Reactions: No Hx Malignant Hyperthermia: No Has any member of the family had a problem w/ anesthesia?: No Meds Allergies/Adverse Reactions: Allergies Allergy/AdvReac Type Severity Reaction Status Date / Time Seasonal Allergy Allergy ITCHING Uncoded 08/13/16 02:41 - Medications Medications: Current Medications Albuterol/Ipratropium (Duoneb 3 Mg/0.5 Mg (3 Ml) Ud) 3 ml INH RQ6 [facility] Last Admin: 08/14/16 13:30 Dose: 3 ml Levothyroxine Sodium (Synthroid) 250 mcg PO DAILY@0630 [facility] Last Admin: 08/14/16 06:51 Dose: 250 mcg Pneumococcal Polyvalent Vaccine (Pneumovax 23 Vaccine) 0.5 ml IM .ONCE ONE Stop: 08/15/16 11:01 Physical Exam - Head Exam Head Exam: ATRAUMATIC, NORMOCEPHALIC - Eye Exam Eye Exam: Normal appearance - ENT Exam ENT Exam: Mucous Membranes Moist - Neck Exam Neck exam: Positive for: Normal Inspection - Respiratory Exam Respiratory Exam: Clear to Auscultation Bilateral - Cardiovascular Exam Cardiovascular Exam: REGULAR RHYTHM - GI/Abdominal Exam GI & Abdominal Exam: Normal Bowel Sounds, Soft - Extremities Exam Extremities exam: Positive for: normal inspection - Neurological Exam Neurological exam: Alert, Oriented x3 Results - Vital Signs Recent Vital Signs: Last Vital Signs Temp 97.3 F L 08/14/16 07:00 Pulse 80 08/14/16 07:32 Resp 20 08/14/16 07:00 BP 138/72 08/14/16 07:00 Pulse Ox 95 08/14/16 07:00 - Labs Result Diagrams: 08/13/16 06:37 08/13/16 06:37 Labs: Laboratory Results - last 24 hr 08/13/16 08/13/16 08/14/16 14:39 21:19 07:48 APTT 60 H D 54 H D 144 H* D Assessment & Plan (1) Pulmonary embolism Status: Acute Comment: Continue heparin drip. Follow-up PTT. Seen by hematology. start Oral anticoagulation (2) Coagulopathy Status: Acute
--- NOTE | 2016-08-14 16:34 | VASCLAB ---
PROCEDURE: Lower Extremity Venous Duplex Exam. HISTORY: PE rule out DVT PRIORS: None. TECHNIQUE: Bilateral common femoral, femoral, popliteal and posterior tibial, peroneal and great saphenous veins were evaluated. Flow was assessed with color Doppler, compressibility, assessment of phasic flow and augmentation response. Report prepared by Tristan Latham, LORNE, RVT FINDINGS: RIGHT: 1. Common Femoral Vein: 1.1. Compressibility - Fully compressible: Thrombus - None : Flow - Phasic: Augmentation -Normal: Reflux - None. 2. Femoral Vein: 2.1. Compressibility - Fully compressible: Thrombus - None : Flow - Phasic: Augmentation -Normal: Reflux - None. 3. Popliteal Vein: 3.1. Compressibility - Fully compressible: Thrombus - None : Flow - Phasic: Augmentation -Normal: Reflux - None. 4. Posterior Tibial Vein: 4.1. Compressibility - Fully compressible: Thrombus - None: Flow - Phasic: Augmentation -Normal: Reflux - None. 5. Peroneal Vein: 5.1. Compressibility - Fully compressible: Thrombus - None: Flow - Phasic: Augmentation -Normal: Reflux - None. 6. Great Saphenous Vein: 6.1. Compressibility - Incompressible: Thrombus - Chronic: Flow - Absent : Augmentation - None: Reflux - None. LEFT: 1. Common Femoral Vein: 1.1. Compressibility - Fully compressible: Thrombus - None: Flow - Phasic: Augmentation -Normal: Reflux - None. 2. Femoral Vein: 2.1. Compressibility - Fully compressible: Thrombus - None: Flow - Phasic: Augmentation -Normal: Reflux - None. 3. Popliteal Vein: 3.1. Compressibility - Fully compressible: Thrombus - None : Flow - Phasic: Augmentation -Normal: Reflux - None. 4. Posterior Tibial Vein: 4.1. Compressibility - Fully compressible: Thrombus - None: Flow - Phasic: Augmentation -Normal: Reflux - None. 5. Peroneal Vein: 5.1. Compressibility - Fully compressible: Thrombus - None: Flow - Phasic: Augmentation -Normal: Reflux - None. 6. Great Saphenous Vein: 6.1. Compressibility - Incompressible: Thrombus - Chronic: Flow - Absent : Augmentation - None: Reflux - None. OTHER FINDINGS: Right: None significant. Left: None significant. 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 Left: Chronic thrombosis of the left greater saphenous vein with severe reduction of the venous return.
--- NOTE | 2016-08-14 16:57 | PN ---
DATE: 08/14/2016 HISTORY OF PRESENT ILLNESS: The patient is seen and examined at bedside. The patient is feeling muc h better. Denies any chest pain or shortness of breath. PHYSICAL EXAMINATION: GENERAL: Young male lying in bed in no acute distress. VITAL SIGNS: Blood pressure 138/72, pulse 71, respirations 20, temperature 97.3 degrees Fahrenheit, O2 sats 96% on room air. HEENT: Pupils equal, round, reacting to light and accommodation. Extraocular muscles intact. No ic terus, no pallor. No oral thrush. No pharyngeal congestion. NECK: Supple. No JVD, no thyromegaly. CHEST: Moving equally bilaterally on respiration. LUNGS: Bilateral vesicular breath sounds. No wheezing, no rhonchi. CARDIOVASCULAR: S1, S2 present, regular. ABDOMEN: Soft, nontender. Bowel sounds present. No guarding, no rigidity, no rebound tenderness no jose. CENTRAL NERVOUS SYSTEM: Alert, awake, oriented x 3. No focal deficits noted. EXTREMITIES: No edema. Palpable peripheral pulses. LABORATORY DATA: Lower extremity Doppler positive for abnormality in long saphenous veins. The labs show PTT is 144. ASSESSMENT AND PLAN: Young male with Factor V Leiden deficiency, admitted for pulmonary embolism and pulmonary infarction and abnormal CT of the chest with question lymph nodes versus esophageal lesion . Hematology, pulmonary consults appreciated. Discussed with gastroenterology regarding possible es ophagogastroduodenoscopy prior to starting the patient on fdc anticoagulation. He might be sche duled for possible esophagogastroduodenoscopy in a.m. If patient is scheduled, we will keep the patie nt n.p.o. and hold heparin drip at [address] [facility] for possible procedure in the a.m. Discussed same with the patient, who is agreeable to undergoing esophagogastroduodenoscopy while he is in the hospital. We will continue with other current medication. We will add further recommendation as his clinical course progresses. Kate Olsen MD cc: [phone] TT: 08/14/2016 16:56:47 Confirmation # [id number] Dictation # [id number]
[2016-08-15] MEDS: Albuterol-Ipratrop 3 mg / 0.5 (3 ml) UD INH SCH ×4 (01:13→19:45)
[2016-08-15 07:06] LABS: BASO # 0.1 K/uL (0.0-0.2); EOS # 0.6 K/uL (0.0-0.7); EOS % 4.8 % (0.0-4.0); HEMATOCRIT 42.3 % (35.0-51.0); LYMPH # 3.8 K/uL (1.0-4.3); LYMPH % 31.9 % (20.0-40.0); MEAN CORPUSCULAR HEMOGLOBIN 30.2 pg (27.0-31.0); MEAN CORPUSCULAR HGB CONC 32.8 g/dL (33.0-37.0); MEAN PLATELET VOLUME 10.1 fL (7.2-11.7); MONO # 0.7 K/uL (0.0-0.8); MONO % 5.8 % (0.0-10.0); NRBC % 0.1 % (0.0-2.0); WHITE BLOOD COUNT 11.8 K/uL (4.8-10.8)
[2016-08-15] MEDS: Levothyroxine 125 MCG TAB PO SCH (07:25)
[2016-08-15 07:35] LABS: CHLORIDE 103 mmol/L (98-107)
[2016-08-15 07:36] LABS: POTASSIUM 4.1 mmol/L (3.6-5.2); SODIUM 137 mmol/L (132-148)
[2016-08-15 07:38] LABS: ALB/GLOB RATIO 1.1 (1.0-2.1); ALKALINE PHOSPHATASE 112 U/L (38-126); AST/SGOT 20 U/L (17-59); BILIRUBIN,TOTAL 0.4 mg/dL (0.2-1.3); CARBON DIOXIDE 23 mmol/L (22-30); GFR AFRICAN-AMERICAN > 60; TOTAL PROTEIN 6.8 g/dL (6.3-8.3)
[2016-08-15 07:39] LABS: ALT/SGPT 34 U/L (21-72); BLOOD UREA NITROGEN 16 mg/dL (9-20); CALCIUM 8.9 mg/dl (8.6-10.4); GLUCOSE,RANDOM 80 mg/dL (75-110)
[2016-08-15] MEDS ORDERED: Propofol 10 mg/ml Inj (20 ML) ONE (08:35)
[2016-08-15] MEDS ORDERED: Midazolam 2 MG/2 ML VIAL ONE (08:35)
[2016-08-15] MEDS ORDERED: Pneumococcal 23-Valent Vaccine IM ONE (11:00)
[2016-08-15] MEDS ORDERED: Peg-Electrolyte Oral Soln 4L (Golytely) PO ONE (11:00)
--- NOTE | 2016-08-15 11:13 | CP.PCM.PN ---
Subjective - Date & Time of Evaluation Date of Evaluation: 08/15/16 Time of Evaluation: 11:12 - Subjective Subjective: Pt s/e. No c/o. cxr-left effusion, unchanged. satisfactory. Objective - Vital Signs/Intake and Output Vital Signs (last 24 hours): Temp Pulse Resp BP Pulse Ox 98.4 F 70 20 130/77 99 08/15/16 09:22 08/15/16 09:22 08/15/16 09:22 08/15/16 09:22 08/15/16 09:22 Intake and Output: 08/15/16 08/15/16 06:59 18:59 Intake Total 350 150 Balance 350 150 - Medications Medications: Current Medications Albuterol/Ipratropium (Duoneb 3 Mg/0.5 Mg (3 Ml) Ud) 3 ml INH RQ6 [facility] Last Admin: 08/15/16 07:21 Dose: Not Given Bisacodyl (Dulcolax) 10 mg PO ONCE ONE Stop: 08/15/16 17:01 Heparin Sodium/Sodium Chloride (Heparin 94932 Units/250ml 1/2 Normal Saline) 25 ,000 units in 250 mls @ 20.499 mls/hr IV .[id number] PRN; Protocol; 16.8 UNITS/KG/ HR PRN Reason: PROTOCOL Levothyroxine Sodium (Synthroid) 250 mcg PO DAILY@0630 [facility] Last Admin: 08/15/16 07:25 Dose: 250 mcg Metoclopramide HCl (Reglan) 5 mg IVP Q6 [facility] Sucralfate (Carafate Oral Susp) 1 gm PO ACS [facility] - Labs Labs: 08/15/16 06:53 08/15/16 06:53 PT 10.8 SECONDS (9.7-12.2) 08/15/16 06:53 INR 1.0 08/15/16 06:53 APTT 26 SECONDS (21-34) D 08/15/16 06:53
--- NOTE | 2016-08-15 11:37 | CP.PCM.PN ---
Subjective - Date & Time of Evaluation Date of Evaluation: 08/15/16 Time of Evaluation: 11:30 - Subjective Subjective: Progress note dictated #[id number] Objective - Vital Signs/Intake and Output Vital Signs (last 24 hours): Temp Pulse Resp BP Pulse Ox 98.4 F 70 20 130/77 99 08/15/16 09:22 08/15/16 09:22 08/15/16 09:22 08/15/16 09:22 08/15/16 09:22 Intake and Output: 08/15/16 08/15/16 06:59 18:59 Intake Total 350 150 Balance 350 150 - Medications Medications: Current Medications Albuterol/Ipratropium (Duoneb 3 Mg/0.5 Mg (3 Ml) Ud) 3 ml INH RQ6 [facility] Last Admin: 08/15/16 07:21 Dose: Not Given Bisacodyl (Dulcolax) 10 mg PO ONCE ONE Stop: 08/15/16 17:01 Heparin Sodium/Sodium Chloride (Heparin 27343 Units/250ml 1/2 Normal Saline) 25 ,000 units in 250 mls @ 20.499 mls/hr IV .[id number] PRN; Protocol; 16.8 UNITS/KG/ HR PRN Reason: PROTOCOL Levothyroxine Sodium (Synthroid) 250 mcg PO DAILY@0630 [facility] Last Admin: 08/15/16 07:25 Dose: 250 mcg Metoclopramide HCl (Reglan) 5 mg IVP Q6 [facility] Sucralfate (Carafate Oral Susp) 1 gm PO ACB[facility] - Labs Labs: 08/15/16 06:53 08/15/16 06:53 PT 10.8 SECONDS (9.7-12.2) 08/15/16 06:53 INR 1.0 08/15/16 06:53 APTT 26 SECONDS (21-34) D 08/15/16 06:53
--- NOTE | 2016-08-15 12:18 | RAD ---
Chest x-ray single frontal view History: Effusion. Comparison: 08/14/2016 Findings: Mild venous congestion. Heart size within normal limits. Impression: Mild venous congestion.
--- NOTE | 2016-08-15 15:08 | CP.PCM.PN ---
Subjective - Date & Time of Evaluation Date of Evaluation: 08/15/16 Time of Evaluation: 10:00 - Subjective Subjective: patient seen and examined. Denies shortness of breath, denies cough, denies fever chills Status post endoscopy consistent with gastritis with no activeeding Objective - Vital Signs/Intake and Output Vital Signs (last 24 hours): Temp Pulse Resp BP Pulse Ox 98.4 F 70 20 130/77 99 08/15/16 09:22 08/15/16 09:22 08/15/16 09:22 08/15/16 09:22 08/15/16 09:22 Intake and Output: 08/15/16 08/15/16 06:59 18:59 Intake Total 350 150 Balance 350 150 - Medications Medications: Current Medications Albuterol/Ipratropium (Duoneb 3 Mg/0.5 Mg (3 Ml) Ud) 3 ml INH RQ6 [facility] Last Admin: 08/15/16 14:01 Dose: 3 ml Bisacodyl (Dulcolax) 10 mg PO ONCE ONE Stop: 08/15/16 17:01 Heparin Sodium/Sodium Chloride (Heparin 65532 Units/250ml 1/2 Normal Saline) 25 ,000 units in 250 mls @ 20.499 mls/hr IV .[id number] PRN; Protocol; 16.8 UNITS/KG/ HR PRN Reason: PROTOCOL Levothyroxine Sodium (Synthroid) 250 mcg PO DAILY@0630 [facility] Last Admin: 08/15/16 07:25 Dose: 250 mcg Metoclopramide HCl (Reglan) 5 mg IVP Q6 [facility] Last Admin: 08/15/16 11:39 Dose: 5 mg Sucralfate (Carafate Oral Susp) 1 gm PO ACS [facility] - Labs Labs: 08/15/16 06:53 08/15/16 06:53 PT 10.8 SECONDS (9.7-12.2) 08/15/16 06:53 INR 1.0 08/15/16 06:53 APTT 26 SECONDS (21-34) D 08/15/16 06:53 - Constitutional Appears: No Acute Distress - Head Exam Head Exam: ATRAUMATIC, NORMOCEPHALIC - Eye Exam Eye Exam: Normal appearance - ENT Exam ENT Exam: Mucous Membranes Moist - Neck Exam Neck Exam: Full ROM, Normal Inspection - Respiratory Exam Respiratory Exam: Clear to Ausculation Bilateral - Cardiovascular Exam Cardiovascular Exam: REGULAR RHYTHM - GI/Abdominal Exam GI & Abdominal Exam: Soft, Normal Bowel Sounds Assessment and Plan (1) Pulmonary embolism Assessment & Plan: Continue anticoagulation Patient wants to start Coumadin For bronchoscopy in a.m. Status: Acute (2) Coagulopathy Status: Acute
[2016-08-15] MEDS: Heparin25000 units/250ml 1/2NS 25,000 UNITS/250 ML BAG IV PRN (16:18)
--- NOTE | 2016-08-15 16:29 | PN ---
DATE: 08/15/2016 The patient was seen and examined at bedside. The patient underwent EGD this morning. Feeling much better. Denies any complaints of chest pain, shortness of breath or wheezing. Denies any headache, dizziness. Denies any nausea, vomiting or abdominal pain. REVIEW OF SYSTEMS: All other systems reviewed and were found to be negative. PHYSICAL EXAMINATION: GENERAL: Young male lying in bed in no acute distress. VITAL SIGNS: Blood pressure 121/71, pulse 77, respirations 20, temperature 97.8 degrees Fahrenheit, O2 sat is 94% on room air. HEENT: Pupils equal, round, reacting to light and accommodation. Extraocular muscles intact. No ic terus, no pallor. No oral thrush. No pharyngeal congestion. NECK: Supple. No JVD, no thyromegaly. CHEST: Moving equally bilaterally on respiration. LUNGS: Bilateral vesicular breath sounds. No wheezing, no rhonchi. CARDIOVASCULAR: S1, S2 present, regular. ABDOMEN: Soft, nontender. Bowel sounds present. No guarding, no rigidity, no rebound tenderness no jose. CENTRAL NERVOUS SYSTEM: Alert, awake, oriented x 3. No focal deficits noted. EXTREMITIES: No edema. Palpable peripheral pulses. LABORATORY DATA: Done from this morning, WBC 11.8, hemoglobin 13.9, hematocrit 42.3, platelets 214. INR 1.0. Sodium 137, potassium 4.1, chloride 103, bicarb 23, BUN 16, creatinine 0.7, glucose 80. L FTs within normal limits. The EGD consistent with early grade III reflux esophagitis, nonbleeding es ophageal ulcers, small hiatal hernia, erythematous mucosa in the antrum, acute gastritis. IMPRESSION: Young male with history of factor V Leiden deficiency, history of superficial thrombophl ebitis admitted for pulmonary embolism and pleural effusion, abnormal chest CT, status post esophagog astroduodenoscopy consistent with esophagitis and gastritis. The patient is on heparin drip for possible colonoscopy in the a.m. Will continue with heparin drip. Continue with Carafate as ordered by GI. Continue with Synthroid. Discussed with patient at lengt h at bedside. I clarified all his questions and concerns. Kate Olsen MD cc: [phone] TT: 08/15/2016 16:28:30 Confirmation # [id number] Dictation # [id number]
[2016-08-15] MEDS ORDERED: Bisacodyl 5mg EC Tab PO ONE (17:00)
--- NOTE | 2016-08-15 19:22 | CARD ---
APPROVED REPORT EKG Measurement Heart [id number] 176P9 [id number] <Conclusion> Sinus bradycardia Otherwise normal ECG
[2016-08-15] MEDS: Sucralfate 1 gm/10 ml Oral Susp UD PO SCH (22:57)
[2016-08-16] MEDS: Albuterol-Ipratrop 3 mg / 0.5 (3 ml) UD INH SCH ×4 (01:24→19:29)
--- NOTE | 2016-08-16 01:46 | CP.PCM.PN ---
Subjective - Date & Time of Evaluation Date of Evaluation: 08/15/16 Time of Evaluation: 18:00 - Subjective Subjective: Feeling better EGD findings noted Objective - Vital Signs/Intake and Output Vital Signs (last 24 hours): Temp Pulse Resp BP Pulse Ox 97.7 F 79 20 127/76 97 08/15/16 23:35 08/15/16 23:35 08/15/16 23:35 08/15/16 23:35 08/15/16 23:35 Intake and Output: 08/15/16 08/16/16 18:59 06:59 Intake Total 150 3000 Balance 150 3000 - Medications Medications: Current Medications Albuterol/Ipratropium (Duoneb 3 Mg/0.5 Mg (3 Ml) Ud) 3 ml INH RQ6 [facility] Last Admin: 08/16/16 01:24 Dose: Not Given Heparin Sodium/Sodium Chloride (Heparin 44472 Units/250ml 1/2 Normal Saline) 25 ,000 units in 250 mls @ 20.499 mls/hr IV .[id number] PRN; Protocol; 16.8 UNITS/KG/ HR PRN Reason: PROTOCOL Last Admin: 08/15/16 16:18 Dose: 16.8 units/kg/hr, 20.499 mls/hr Levothyroxine Sodium (Synthroid) 250 mcg PO DAILY@0630 [facility] Last Admin: 08/15/16 07:25 Dose: 250 mcg Metoclopramide HCl (Reglan) 5 mg IVP Q6 [facility] Last Admin: 08/16/16 01:19 Dose: 5 mg Sucralfate (Carafate Oral Susp) 1 gm PO ACBHS [facility] Last Admin: 08/15/16 22:57 Dose: 1 gm - Labs Labs: 08/15/16 06:53 08/15/16 06:53 PT 10.8 SECONDS (9.7-12.2) 08/15/16 06:53 INR 1.0 08/15/16 06:53 APTT 70 SECONDS (21-34) H D 08/15/16 17:02 - Head Exam Head Exam: ATRAUMATIC - Eye Exam Eye Exam: Normal appearance - ENT Exam ENT Exam: Mucous Membranes Dry - Respiratory Exam Respiratory Exam: NORMAL BREATHING PATTERN - Cardiovascular Exam Cardiovascular Exam: +S1, +S2 - GI/Abdominal Exam GI & Abdominal Exam: Normal Bowel Sounds - Extremities Exam Extremities Exam: Normal Inspection Assessment and Plan (1) Pulmonary embolism Assessment & Plan: factor V leiden mutation thereapeutic anticoagulation for life; pt agreeable to outpatient Eliquis Status: Acute (2) Esophageal abnormality Assessment & Plan: EGD shows esophagitis and esophageal ulcers Status: Acute (3) Coagulopathy Assessment & Plan: secondary to anticoagulation Status: Acute (4) Leukocytosis Assessment & Plan: improving Status: Acute
[2016-08-16] MEDS: Heparin25000 units/250ml 1/2NS 25,000 UNITS/250 ML BAG IV PRN (04:58)
[2016-08-16] MEDS: Sucralfate 1 gm/10 ml Oral Susp UD PO SCH ×2 (06:44→23:27)
[2016-08-16] MEDS: Levothyroxine 125 MCG TAB PO SCH (07:00)
[2016-08-16 07:47] LABS: BASO # 0.2 K/uL (0.0-0.2); BASO % 1.3 % (0.0-2.0); EOS # 0.6 K/uL (0.0-0.7); EOS % 4.9 % (0.0-4.0); HEMATOCRIT 43.2 % (35.0-51.0); LYMPH # 3.4 K/uL (1.0-4.3); LYMPH % 27.2 % (20.0-40.0); MEAN CELL VOLUME 90.8 fL (80.0-94.0); MEAN CORPUSCULAR HEMOGLOBIN 30.4 pg (27.0-31.0); MEAN CORPUSCULAR HGB CONC 33.5 g/dL (33.0-37.0); MEAN PLATELET VOLUME 9.7 fL (7.2-11.7); MONO # 0.7 K/uL (0.0-0.8); MONO % 5.5 % (0.0-10.0); NRBC % 0.1 % (0.0-2.0); RED CELL DISTRIBUTION WIDTH 13.1 % (11.5-14.5); WHITE BLOOD COUNT 12.3 K/uL (4.8-10.8)
--- NOTE | 2016-08-16 09:42 | CP.PCM.PN ---
Subjective - Date & Time of Evaluation Date of Evaluation: 08/16/16 Time of Evaluation: 09:40 - Subjective Subjective: CT Sx: Dr Lawrence Pt S&E. NASolO. S/P Endoscopy. Pt is very anxious and frustrated. States he was told he is for colonoscopy today, as well as bronchoscopy. He is unclear on what procedures he is having done or why. States he cannot sit in the room any longer and wants to leave. I have concern pt will leave AMA without being started on anti-coagulation. Currently asymptomatic, denies sob, chest pain, n/ v, f/c. Objective - Vital Signs/Intake and Output Vital Signs (last 24 hours): Temp Pulse Resp BP Pulse Ox 97.5 F L 81 20 126/73 94 L 08/16/16 07:00 08/16/16 07:00 08/16/16 07:00 08/16/16 07:00 08/16/16 07:00 Intake and Output: 08/16/16 08/16/16 06:59 18:59 Intake Total 3250 Balance 3250 - Medications Medications: Current Medications Albuterol/Ipratropium (Duoneb 3 Mg/0.5 Mg (3 Ml) Ud) 3 ml INH RQ6 [facility] Last Admin: 08/16/16 07:53 Dose: 3 ml Heparin Sodium/Sodium Chloride (Heparin 25111 Units/250ml 1/2 Normal Saline) 25 ,000 units in 250 mls @ 20.499 mls/hr IV .[id number] PRN; Protocol; 16.8 UNITS/KG/ HR PRN Reason: PROTOCOL Last Admin: 08/16/16 04:58 Dose: 16.8 units/kg/hr, 20.499 mls/hr Levothyroxine Sodium (Synthroid) 250 mcg PO DAILY@0630 [facility] Last Admin: 08/16/16 07:00 Dose: 250 mcg Metoclopramide HCl (Reglan) 5 mg IVP Q6 [facility] Last Admin: 08/16/16 06:44 Dose: 5 mg Sucralfate (Carafate Oral Susp) 1 gm PO ACBHS [facility] Last Admin: 08/16/16 06:44 Dose: 1 gm - Labs Labs: 08/16/16 07:33 08/15/16 06:53 PT 10.8 SECONDS (9.7-12.2) 08/15/16 06:53 INR 1.0 08/15/16 06:53 APTT 126 SECONDS (21-34) H* D 08/16/16 07:33 - Constitutional Appears: Non-toxic, No Acute Distress - Respiratory Exam Respiratory Exam: absent: Accessory Muscle Use, Respiratory Distress - Cardiovascular Exam Cardiovascular Exam: REGULAR RHYTHM. absent: Tachycardia - GI/Abdominal Exam GI & Abdominal Exam: Soft. absent: Distended, Tenderness - Neurological Exam Neurological Exam: Alert, Awake, Oriented x3 - Psychiatric Exam Psychiatric exam: Normal Affect, Normal Mood - Skin Skin Exam: Normal Color, Warm Assessment and Plan - Assessment and Plan (Free Text) Assessment: 26M with Factor V Leiden w/ PE Plan: anti-coagulation for life per Dr Romano Pt should be started on oral anti-coagulants soon as he may leave the hospital AMA. Unclear if he will be receiving Coumadin or Eliquis per previous notes CXR shows resolution of left sided effusion No surgical intervention planned will d/w Dr Melinda Cristobal, PGY2
--- NOTE | 2016-08-16 10:13 | RAD ---
Chest x-ray single frontal view History: Effusion. Comparison: 08/15/2016 Findings: No focal infiltrate or effusion. Heart size within normal limits. Impression: No focal infiltrate or effusion.
[2016-08-16] MEDS ORDERED: Heparin25000 units/250ml 1/2NS 25,000 UNITS/250 ML BAG IV PRN (10:15)
[2016-08-16] MEDS ORDERED: Lactated Ringer's 500 ML IV ONE ×2 (12:02)
[2016-08-16] MEDS ORDERED: Propofol 10 mg/ml Inj (20 ML) ONE ×2 (12:04→12:09)
[2016-08-16] MEDS ORDERED: Midazolam 2 MG/2 ML VIAL ONE (12:11)
[2016-08-16] MEDS ORDERED: MethylPREDNISolone 1 gm Vial IV ONE (12:17)
[2016-08-16] MEDS ORDERED: Belladonna-Phenobarbital PO STA (12:43)
--- NOTE | 2016-08-16 12:52 | CP.PCM.PN ---
Subjective - Date & Time of Evaluation Date of Evaluation: 08/16/16 Time of Evaluation: 12:45 - Subjective Subjective: Progress note dictated #[id number] Objective - Vital Signs/Intake and Output Vital Signs (last 24 hours): Temp Pulse Resp BP Pulse Ox 97.1 F L 65 16 120/53 L 98 08/16/16 12:21 08/16/16 12:36 08/16/16 12:36 08/16/16 12:36 08/16/16 12:36 Intake and Output: 08/16/16 08/16/16 06:59 18:59 Intake Total 3250 Balance 3250 - Medications Medications: Current Medications Albuterol/Ipratropium (Duoneb 3 Mg/0.5 Mg (3 Ml) Ud) 3 ml INH RQ6 [facility] Last Admin: 08/16/16 07:53 Dose: 3 ml Heparin Sodium/Sodium Chloride (Heparin 71504 Units/250ml 1/2 Normal Saline) 25 ,000 units in 250 mls @ 16.838 mls/hr IV .[id number] PRN; Protocol; 13.8 UNITS/KG/ HR PRN Reason: PROTOCOL Methylprednisolone 1 gm/ (Sodium Chloride) 100 mls @ 100 mls/hr IV ONCE ONE Stop: 08/16/16 14:29 Levothyroxine Sodium (Synthroid) 250 mcg PO DAILY@0630 [facility] Last Admin: 08/16/16 07:00 Dose: 250 mcg Metoclopramide HCl (Reglan) 5 mg IVP Q6 [facility] Last Admin: 08/16/16 06:44 Dose: 5 mg Sucralfate (Carafate Oral Susp) 1 gm PO ACBHS [facility] Last Admin: 08/16/16 06:44 Dose: 1 gm - Labs Labs: 08/16/16 07:33 08/15/16 06:53 PT 10.8 SECONDS (9.7-12.2) 08/15/16 06:53 INR 1.0 08/15/16 06:53 APTT 126 SECONDS (21-34) H* D 08/16/16 07:33
[2016-08-16] MEDS ORDERED: methylPREDNISolone 1 GM in Sodium Chloride 0.9% 100 ML IV ONE (13:30)
[2016-08-16] MEDS ORDERED: methylPREDNISolone 1 GM in Sodium Chloride 0.9% 250 ML IV ONE (13:45)
[2016-08-16] MEDS ORDERED: Belladonna-Phenobarbital PO ONE (15:45)
--- NOTE | 2016-08-16 16:47 | PN ---
DATE: 08/16/2016 The patient was seen and examined at bedside. The patient is feeling much better. Underwent a colon oscopy this morning. Denies any headache, dizziness. Denies any chest pain, shortness of breath or wheezing. REVIEW OF SYSTEMS: All other systems reviewed and were found to be negative. PHYSICAL EXAMINATION: GENERAL: Young male lying in bed in no acute distress. VITAL SIGNS: Blood pressure 110/50, pulse 74, respirations 16, temperature 97 degrees Fahrenheit, O2 sat is 98% on room air. HEENT: Pupils equal, round, reacting to light and accommodation. Extraocular muscles intact. No ic terus, no pallor. No oral thrush. No pharyngeal congestion. NECK: Supple. No JVD, no thyromegaly. CHEST: Moving equally bilaterally on respiration. LUNGS: Bilateral vesicular breath sounds. No wheezing, no rhonchi. CARDIOVASCULAR: S1, S2 present, regular. ABDOMEN: Soft, nontender. Bowel sounds present. No guarding, no rigidity, no rebound tenderness no jose. CENTRAL NERVOUS SYSTEM: Alert, awake, oriented x 3. No focal deficits noted. EXTREMITIES: No edema. Palpable peripheral pulses. MEDICATIONS: Include DuoNeb, heparin drip, Synthroid 250 mcg p.o. daily, Reglan 5 mg IV push q.6 bianca rs, Carafate 1 gram p.o. before meals breakfast and at bedtime, methylprednisolone. LABORATORY DATA: Labs from this morning, WBC 12.3, hemoglobin 14.5, hematocrit 43.2, platelets 232. ASSESSMENT AND PLAN: Young male with history of factor V Leiden deficiency, asthma, admitted for acu te ____ status post EGD and colonoscopy. EGD consistent with esophagitis. Status post colonoscopy c onsistent with internal hemorrhoids, congested mucosa in the entire examined colon, mild colonic spas m. No specimens collected. The patient is restarted on heparin. Discussed with ____, agrees wi th restarting heparin. The patient needs long-term anticoagulation. The patient is being started on intravenous Solu-Medrol by gastrointestinal for colonic spasm positive. We will continue with nebul izer treatment. Follow up with gastrointestinal. We will repeat labs in a.m. Kate Olsen MD cc: [phone] TT: 08/16/2016 15:56:56 Confirmation # [id number] Dictation # [id number]
[2016-08-16 16:54] VITALS: RESP 20
[2016-08-16 22:03] LABS: CARDIOLIPIN AB (IGA) <11 APL (<=11)
[2016-08-17 00:21] LABS: B2 GLYCOPROTEIN I AB(IGA) <9 SAU (<=20); B2 GLYCOPROTEIN I AB(IGG) <9 SGU (<=20); B2 GLYCOPROTEIN I AB(IGM) <9 SMU (<=20)
[2016-08-17] MEDS: Albuterol-Ipratrop 3 mg / 0.5 (3 ml) UD INH SCH ×2 (01:11→07:14)
[2016-08-17 01:41] VITALS: TEMP 98.2
--- NOTE | 2016-08-17 03:51 | CP.PCM.PN ---
Subjective - Date & Time of Evaluation Date of Evaluation: 08/16/16 Time of Evaluation: 19:15 - Subjective Subjective: No complaints Okay to start heparin and monitor overnight for bleeding can start Eliquis 5mg BID as outpatient Objective - Vital Signs/Intake and Output Vital Signs (last 24 hours): Temp Pulse Resp BP Pulse Ox 98.2 F 76 20 126/67 95 08/16/16 23:40 08/16/16 23:40 08/16/16 23:40 08/16/16 23:40 08/16/16 23:40 Intake and Output: 08/16/16 08/17/16 18:59 06:59 Intake Total 450 Balance 450 - Medications Medications: Current Medications Acetaminophen (Tylenol 325mg Tab) 650 mg PO Q6 PRN PRN Reason: pain Last Admin: 08/16/16 18:44 Dose: 650 mg Albuterol/Ipratropium (Duoneb 3 Mg/0.5 Mg (3 Ml) Ud) 3 ml INH RQ6 [facility] Last Admin: 08/16/16 19:29 Dose: 3 ml Heparin Sodium/Sodium Chloride (Heparin 03727 Units/250ml 1/2 Normal Saline) 25 ,000 units in 250 mls @ 16.838 mls/hr IV .[id number] PRN; Protocol; 13.8 UNITS/KG/ HR PRN Reason: PROTOCOL Last Admin: 08/17/16 03:02 Dose: 13.8 units/kg/hr, 16.838 mls/hr Levothyroxine Sodium (Synthroid) 250 mcg PO DAILY@0630 [facility] Last Admin: 08/16/16 07:00 Dose: 250 mcg Methylprednisolone (Solu-Medrol) 40 mg IV Q12 [facility] Stop: 08/18/16 22:01 Methylprednisolone (Solu-Medrol) 20 mg IV Q12 [facility] Stop: 08/20/16 22:01 Metoclopramide HCl (Reglan) 5 mg IVP Q6 [facility] Last Admin: 08/17/16 00:49 Dose: 5 mg Sucralfate (Carafate Oral Susp) 1 gm PO ACBHS [facility] Last Admin: 08/16/16 23:27 Dose: 1 gm - Labs Labs: 08/16/16 07:33 08/15/16 06:53 PT 10.8 SECONDS (9.7-12.2) 08/15/16 06:53 INR 1.0 08/15/16 06:53 APTT 75 SECONDS (21-34) H D 08/17/16 03:11 - Head Exam Head Exam: ATRAUMATIC - Eye Exam Eye Exam: Normal appearance - ENT Exam ENT Exam: Mucous Membranes Dry - Respiratory Exam Respiratory Exam: NORMAL BREATHING PATTERN - Cardiovascular Exam Cardiovascular Exam: +S1, +S2 - GI/Abdominal Exam GI & Abdominal Exam: Normal Bowel Sounds - Extremities Exam Extremities Exam: Normal Inspection Assessment and Plan (1) Pulmonary embolism Status: Acute (2) Esophageal abnormality Status: Acute (3) Coagulopathy Status: Acute (4) Leukocytosis Status: Acute
[2016-08-17 05:15] LABS: PHOSPHATIDYLSERINE AB IGA <20 U/mL (<20); PHOSPHATIDYLSERINE AB IGM <25 U/mL (<25)
[2016-08-17] MEDS: Levothyroxine 125 MCG TAB PO SCH (06:26)
[2016-08-17] MEDS: Sucralfate 1 gm/10 ml Oral Susp UD PO SCH (06:30)
[2016-08-17 08:20] VITALS: BP 136/65; PULSE 95; O2SAT 96
--- NOTE | 2016-08-17 09:25 | PN ---
DATE: 08/17/2016 LOCATION: 658, bed A. This is a 26-year-old male seen and examined in rounds without significant clinical changes, on hepar in drip. No reported chest pain or active bleeding. The entire chart is reviewed including, but not limited to most recent lab and radiology study result s, current and the previous medication lists, current and the previous medical events and today PTT i s 75. The patient tolerated oral intake well with less bowel movement frequency. PHYSICAL EXAMINATION: GENERAL: A 26-year-old male, awake, alert, oriented. VITAL SIGNS: Afebrile with pulse of 92, respiratory rate 20-22, blood pressure of 130/62. HEENT: Showed pale, dry oral mucoid membrane. Nonicteric sclerae. LUNGS: Few scattered crepitation, decreased air entry at bases. HEART: Positive S1 and S2. ABDOMEN: Soft with mild generalized tenderness. No mass or organomegaly. No rebound tenderness or guarding. RECTAL: The patient refused. EXTREMITIES: Without edema, clubbing or cyanosis. IMPRESSION: 1. Colitis, pathology report is pending, rule out inflammatory bowel disease versus pseudomembranous colitis, less likely. 2. Peptic ulcer disease. 3. Known history of pulmonary embolism. 4. Coagulopathy secondary to above. 5. Leukocytosis. SUGGESTION: 1. Continue current management. 2. Antireflux measure. 3. Subsequent drop of hemoglobin and hematocrit. It has to be mentioned that the patient's leukocyt osis could be secondary to steroid induced. Jumana Vicente MD cc: 14 TT: 08/17/2016 09:25:07 Confirmation # [id number] Dictation # [id number]
[2016-08-17] MEDS ORDERED: MethylPREDNISolone 40 mg Vial IV SCH (10:00)
--- NOTE | 2016-08-17 10:16 | CP.PCM.PN ---
Subjective - Date & Time of Evaluation Date of Evaluation: 08/17/16 Time of Evaluation: 10:15 - Subjective Subjective: pt seen and examined, progress note is dictated # Objective - Vital Signs/Intake and Output Vital Signs (last 24 hours): Temp Pulse Resp BP Pulse Ox 98.2 F 95 H 20 136/65 96 08/17/16 08:17 08/17/16 09:16 08/17/16 08:17 08/17/16 08:17 08/17/16 08:17 Intake and Output: 08/17/16 08/17/16 06:59 18:59 Intake Total 450 Balance 450 - Medications Medications: Current Medications Acetaminophen (Tylenol 325mg Tab) 650 mg PO Q6 PRN PRN Reason: pain Last Admin: 08/16/16 18:44 Dose: 650 mg Albuterol/Ipratropium (Duoneb 3 Mg/0.5 Mg (3 Ml) Ud) 3 ml INH RQ6 [facility] Last Admin: 08/17/16 07:14 Dose: 3 ml Heparin Sodium/Sodium Chloride (Heparin 97452 Units/250ml 1/2 Normal Saline) 25 ,000 units in 250 mls @ 16.838 mls/hr IV .[id number] PRN; Protocol; 13.8 UNITS/KG/ HR PRN Reason: PROTOCOL Last Admin: 08/17/16 03:02 Dose: 13.8 units/kg/hr, 16.838 mls/hr Levothyroxine Sodium (Synthroid) 250 mcg PO DAILY@0630 [facility] Last Admin: 08/17/16 06:26 Dose: 250 mcg Methylprednisolone (Solu-Medrol) 40 mg IV Q12 [facility] Stop: 08/18/16 22:01 Last Admin: 08/17/16 09:51 Dose: 40 mg Methylprednisolone (Solu-Medrol) 20 mg IV Q12 [facility] Stop: 08/20/16 22:01 Metoclopramide HCl (Reglan) 5 mg IVP Q6 [facility] Last Admin: 08/17/16 06:28 Dose: 5 mg Sucralfate (Carafate Oral Susp) 1 gm PO ACBHS [facility] Last Admin: 08/17/16 06:30 Dose: 1 gm - Labs Labs: 08/16/16 07:33 08/15/16 06:53 PT 10.8 SECONDS (9.7-12.2) 08/15/16 06:53 INR 1.0 08/15/16 06:53 APTT 75 SECONDS (21-34) H D 08/17/16 03:11
--- NOTE | 2016-08-17 11:22 | CP.PCM.DIS ---
Provider - Provider Date of Admission: 08/12/16 22:45 Attending physician: Kate Olsen MD Time Spent in preparation of Discharge (in minutes): 35 (follow up hematology, pulmonary, gi , pmd as soon as possible in 1 week) Hospital Course - Lab Results Lab Results: Most Recent Lab Values WBC 12.3 K/uL (4.8-10.8) H 08/16/16 07:33 RBC 4.76 Mil/uL (4.40-5.90) 08/16/16 07:33 Hgb 14.5 g/dL (12.0-18.0) 08/16/16 07:33 Hct 43.2 % (35.0-51.0) 08/16/16 07:33 MCV 90.8 fL (80.0-94.0) 08/16/16 07:33 MCH 30.4 pg (27.0-31.0) 08/16/16 07:33 MCHC 33.5 g/dL (33.0-37.0) 08/16/16 07:33 RDW 13.1 % (11.5-14.5) 08/16/16 07:33 Plt Count 232 K/uL (130-400) 08/16/16 07:33 MPV 9.7 fL (7.2-11.7) 08/16/16 07:33 Neut % (Auto) 61.1 % (50.0-75.0) 08/16/16 07:33 Lymph % (Auto) 27.2 % (20.0-40.0) 08/16/16 07:33 Young % (Auto) 5.5 % (0.0-10.0) 08/16/16 07:33 Eos % (Auto) 4.9 % (0.0-4.0) H 08/16/16 07:33 Baso % (Auto) 1.3 % (0.0-2.0) 08/16/16 07:33 Neut # 7.5 K/uL (1.8-7.0) H 08/16/16 07:33 Lymph # 3.4 K/uL (1.0-4.3) 08/16/16 07:33 Young # 0.7 K/uL (0.0-0.8) 08/16/16 07:33 Eos # 0.6 K/uL (0.0-0.7) 08/16/16 07:33 Baso # 0.2 K/uL (0.0-0.2) 08/16/16 07:33 Neutrophils % (Manual) 90 % (50-75) H 08/13/16 06:37 Band Neutrophils % 1 % (0-2) 08/13/16 06:37 Lymphocytes % (Manual) 8 % (20-40) L 08/13/16 06:37 Monocytes % (Manual) 1 % (0-10) 08/13/16 06:37 Platelet Estimate Normal (NORMAL) 08/13/16 06:37 RBC Morphology Normal 08/13/16 06:37 PT 10.8 SECONDS (9.7-12.2) 08/15/16 06:53 INR 1.0 08/15/16 06:53 APTT 75 SECONDS (21-34) H D 08/17/16 03:11 D-Dimer, Quantitative 1447 ng/mlDDU (0-243) H 08/12/16 18:27 Sodium 137 mmol/L (132-148) 08/15/16 06:53 Potassium 4.1 mmol/L (3.6-5.2) 08/15/16 06:53 Chloride 103 mmol/L (98-107) 08/15/16 06:53 Carbon Dioxide 23 mmol/L (22-30) 08/15/16 06:53 Anion Gap 15 (10-20) 08/15/16 06:53 BUN 16 mg/dL (9-20) 08/15/16 06:53 Creatinine 0.7 MG/DL (0.8-1.5) L 08/15/16 06:53 Est GFR ( Amer) > 60 08/15/16 06:53 Est GFR (Non-Af Amer) > 60 08/15/16 06:53 Random Glucose 80 mg/dL (75-110) 08/15/16 06:53 Calcium 8.9 mg/dl (8.6-10.4) 08/15/16 06:53 Total Bilirubin 0.4 mg/dL (0.2-1.3) 08/15/16 06:53 AST 20 U/L (17-59) 08/15/16 06:53 ALT 34 U/L (21-72) 08/15/16 06:53 Alkaline Phosphatase 112 U/L (38-126) 08/15/16 06:53 Troponin I < 0.0120 ng/mL (0.00-0.120) 08/12/16 18:27 Total Protein 6.8 g/dL (6.3-8.3) 08/15/16 06:53 Albumin 3.6 g/dL (3.5-5.0) 08/15/16 06:53 Globulin 3.3 gm/dL (2.2-3.9) 08/15/16 06:53 Albumin/Globulin Ratio 1.1 (1.0-2.1) 08/15/16 06:53 Triglycerides 44 mg/dL (0-149) 08/13/16 06:37 Cholesterol 181 mg/dL (0-199) 08/13/16 06:37 LDL Cholesterol Direct 111 mg/dL (0-129) 08/13/16 06:37 HDL Cholesterol 56 mg/dL (30-70) 08/13/16 06:37 TSH 3rd Generation 0.79 mIU/L (0.46-4.68) 08/13/16 06:37 Urine Color Yellow (YELLOW) 08/13/16 07:08 Urine Clarity Clear (Clear) 08/13/16 07:08 Urine pH 6.0 (5.0-8.0) 08/13/16 07:08 Ur Specific [place] 1.023 (1.003-1.030) 08/13/16 07:08 Urine Protein Negative mg/dL (NEGATIVE) 08/13/16 07:08 Urine Glucose (UA) 1+ mg/dL (Normal) H 08/13/16 07:08 Urine Ketones Negative mg/dL (NEGATIVE) 08/13/16 07:08 Urine Blood Negative (NEGATIVE) 08/13/16 07:08 Urine Nitrate Negative (NEGATIVE) 08/13/16 07:08 Urine Bilirubin Negative (NEGATIVE) 08/13/16 07:08 Urine Urobilinogen Normal mg/dL (0.2-1.0) 08/13/16 07:08 Ur Leukocyte Esterase Neg [place]/uL (Negative) 08/13/16 07:08 Urine WBC (Auto) < 1 /hpf (0-5) 08/13/16 07:08 Urine RBC (Auto) < 1 /hpf (0-3) 08/13/16 07:08 Vunt-2-Pwpsdjpfimuy Ab <9 JESSY (<=20) 08/13/16 21:19 Beta-2 GPI IgG Ab <9 SGU (<=20) 08/13/16 21:19 Beta-2 GPI IgM Ab <9 SMU (<=20) 08/13/16 21:19 Phosphatidylserine IgG <10 U/mL (<10) 08/13/16 21:19 Phosphatidylserine IgA <20 U/mL (<20) 08/13/16 21:19 Phosphatidylserine IgM <25 U/mL (<25) 08/13/16 21:19 Anti-Phospholipid Intrp see note 08/13/16 21:19 Anti-Cardiolipin IgG Ab <14 GPL (<=14) 08/13/16 21:19 Anti-Cardiolipin IgA Ab <11 APL (<=11) 08/13/16 21:19 Anti-Cardiolipin IgM Ab <12 MPL (<=12) 08/13/16 21:19 Discharge Exam - Head Exam Head Exam: ATRAUMATIC Discharge Plan - Follow Up Plan Condition: GOOD Disposition: HOME/ ROUTINE
[2016-08-17 12:17] LABS: BASO % 0.2 % (0.0-2.0); HEMATOCRIT 46.8 % (35.0-51.0); LYMPH # 1.4 K/uL (1.0-4.3); LYMPH % 8.5 % (20.0-40.0); MEAN CELL VOLUME 91.6 fL (80.0-94.0); MEAN CORPUSCULAR HGB CONC 32.8 g/dL (33.0-37.0); MEAN PLATELET VOLUME 10.2 fL (7.2-11.7); MONO # 0.2 K/uL (0.0-0.8); MONO % 1.1 % (0.0-10.0); PLATELET COUNT 278 K/uL (130-400); RED CELL DISTRIBUTION WIDTH 13.3 % (11.5-14.5); WHITE BLOOD COUNT 16.9 K/uL (4.8-10.8)
[2016-08-17 12:27] LABS: INR 1.1
[2016-08-17 12:49] LABS: CHLORIDE 95 mmol/L (98-107); POTASSIUM 4.1 mmol/L (3.6-5.2); SODIUM 134 mmol/L (132-148)
[2016-08-17 12:52] LABS: BLOOD UREA NITROGEN 13 mg/dL (9-20); CARBON DIOXIDE 22 mmol/L (22-30); GFR AFRICAN-AMERICAN > 60
[2016-08-17 12:53] LABS: CALCIUM 9.8 mg/dl (8.6-10.4); GLUCOSE,RANDOM 160 mg/dL (75-110)
[2016-08-17 13:55] LABS: TOTAL CELLS COUNTED 100
[2016-08-17 13:56] LABS: NEUTROPHIL 89 % (50-75)
--- NOTE | 2016-08-17 15:29 | CARD ---
APPROVED REPORT EKG Measurement Heart [id number] <Conclusion> Normal sinus rhythm Normal ECG
--- NOTE | 2016-08-18 08:12 | DS ---
The patient was seen and examined and dictated for Dr. Omar Olsen. The patient a 26-year-old male with a past medical history significant for factor V Leiden deficiency , which was recently diagnosed about 3 months ago when he started having superficial phlebitis for wh ich he has seen his primary care physician, Dr. Tasha Dotson. He was also referred to a vein special ist who did laser therapy for his leg initially and then he noted a superficial phlebitis in the righ t leg, at which point, the patient was referred to grain combine driver. Services Rep did all the workup inc luding CT scan of the chest, abdomen and pelvis and the patient was diagnosed with factor V Leiden de ficiency and the patient was told to take aspirin since there was no evidence of thrombosis in the bethany dy, so the patient was advised to take aspirin, but about a month ago the patient started having ches t pain, pleuritic in nature with cough, congestion. Initially he thought he was having URI symptoms as the patient has a history of asthma, but for the last few days, the patient has complained of pleu ritic chest pain, is getting worse and he had blood while he was coughing about a week ago and his sh ortness of breath got worse yesterday, the day prior to admission and the patient presented to the Em ergency Room for further evaluation. In the Emergency Room, the patient underwent a CAT scan of the chest and consistent with bilateral pulmonary emboli with infarction and the patient is admitted for further management. The patient was on IV heparin with the abnormal CAT scan of the chest. The valdemar ent was also seen by tinware lithograph press operator, Dr. Vicente and the patient also underwent EGD and colonoscopy during his hospitalization. The patient was also seen by . The patient is on IV heparin. The patient is feeling better, no complaints at this time. PAST MEDICAL HISTORY: Is significant for hypothyroidism, asthma, factor V Leiden deficiency and supe rficial thrombophlebitis and now pulmonary embolism. The patient denies any shortness of breath at this time. PHYSICAL EXAMINATION: VITAL SIGNS: Blood pressure 136/65, pulse 95, respiration 20, temperature 98.2, saturation 96%, heig ht 6 feet 6 inches and weight is 269 pounds. GENERAL: The patient is a 26-year-old young male, well built, well nourished, not in acute distress. HEENT: Pupils normal, reactive to light and accommodation. Conjunctivae pink. Sclerae anicteric. Tongue is moist. NECK: Trachea is midline. LUNGS: Symmetric on both sides. Bilateral breath sounds present. Clear on auscultation. CARDIOVASCULAR: [place] at the fifth intercostal space HEART: S1 and S2 audible. No murmur or gallop. ABDOMEN: Normal in appearance, soft, tympanic. No guarding, no rigidity. No hepatosplenomegaly. CENTRAL NERVOUS SYSTEM: The patient is alert, awake, oriented x 3, nonfocal on examination. Cranial nerves II through XII grossly intact. Sensory and motor system is within normal limits. EXTREMITIES: No cyanosis, no clubbing, no edema. MEDICATIONS: Include as follows: Carafate 1 gram p.o. , DuoNeb inhaler, IV heparin, Reglan 5 m g IV q.6 hours, Solu-Medrol 40 mg IV q.12 hours, levothyroxine 250 mcg p.o. daily and Tylenol. LABORATORY DATA: Include as follows, as of 08/16/2006: WBC 12.3, hemoglobin 14.5, hematocrit is 43. 2, platelets 232. And as of 08/15/2016: Sodium 137, potassium 4.1, chloride 103, CO2 of 23, BUN 16, creatinine 0.7, glucose 80, calcium 8.9, total bilirubin 0.4, AST 20, ALT 34, alkaline phosphatase i s 112, total protein 6.8, albumin is 3.6. His other reports: CT of the chest as of 08/12/2016: Impression: Pulmonary emboli, left pleural ef fusion with probable pulmonary infarct, pneumonia not excluded, apparent lymph node versus mass raza guous with the esophagus; clinical correlation is needed and incidental nonacute findings. 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 Other reports: EGD report: Early grade III reflux esophagitis, nonbleeding esophageal ulcers, small hiatal hernia and erythematous mucosa in the antrum, biopsied. Acute gastritis, normal examined shemar anthony. Colonoscopy: Preliminary report, colitis with a spastic colon. IN SUMMARY: The patient is a 26-year-old young male with a history of asthma, hypothyroidism, factor V Leiden deficiency, thrombophlebitis who was admitted with shortness of breath and hemoptysis 1 wee k prior to the admission and found to have bilateral pulmonary emboli with possible infarction and st arted on anticoagulation and status post EGD and colonoscopy. Also evaluated by Dr. Vicente and also h ematologist and continuous loft operator, Dr. French. Now the patient is cleared from the GI standpoint for discharge home and followup with PMD. As per Dr. Vicente's recommendation, prednisone 10 mg for 2 week s and Carafate 1 gram t.i.d. and follow up with PMD and follow up with the pathology report. Also, f or pulmonary embolism, the patient is on IV heparin. The patient will be going home on Eliquis 5 mg p.o. b.i.d. The patient already received medications from Dr. Romano's office and advised to follow u p with Dr. Romano as soon as possible after discharge home and follow up with PMD as soon as discharge d home today and also follow up with GI. Bertha Olsen MD cc: 165 TT: 08/17/2016 19:54:04 dn 08/17/2016 21:12:19
--- NOTE | 2016-08-18 08:14 | CON ---
DATE: 08/14/2016 Dr. Jumana Vicente to Dr. Olsen. I was called for GI consultation by the primary MD. The patient is seen and fully examined in the pr esence of the primary MD on 08/14/16 as reported and requested by the admitting medical team. The entire chart is reviewed, including but not limited to the most recent lab and radiology study re sults, current and the previous medication lists, current and the previous medical events, allergy to medication list as well as all the available current and the previous medical records. The case dis cussed at length with the staff at the time of my physical examination. HISTORY OF PRESENT ILLNESS: This is a 26-year-old male with a known history of factor V Leiden defic iency with associated left superficial vein thrombosis, was diagnosed as having possible PE. H e was found to have abnormal CAT scan of the abdomen and the pelvis as well as possible esophageal le lizzie. Was complaining of intermittent periods of dyspepsia, diarrhea with recently loss of appetite. Initial blood workup after being admitted to the hospital showed leukocytosis of 13.7 with normal hem oglobin and hematocrit. Due to above, the patient was placed on heparin IV. PAST MEDICAL HISTORY: Including mainly, but not limited to: 1. Peptic ulcer disease. 2. As above. ALLERGIES TO MEDICATION: Unclear. The patient has known history of hypothyroidism with deep vein thrombocytosis. FAMILY HISTORY: Unknown. SOCIAL HISTORY: Positive alcohol intake, but no cigarette smoking. CURRENT MEDICATIONS: Medication lists were reviewed post-admission. It has to be mentioned that the patient denied any actual chest pain, palpitations or significant rohan rtness of breath. No reported active bleeding, but chronic diarrhea. PHYSICAL EXAMINATION: GENERAL: A 26-year-old male. VITAL SIGNS: Afebrile with pulse of 68, respiratory rate 20-22 with blood pressure of 128/74. HEENT: Showed dry oral mucoid membranes. Nonicteric sclerae. LUNGS: A few scattered crepitations. Decreased air entry at bases. LYMPH NODES: No lymphadenitis or lymphadenopathy. ABDOMEN: Soft with generalized tenderness and mild distention. Bowel sounds are hyperactive. No ma ss or organomegaly. HEART: Positive S1 and S2. RECTAL: The patient refused. EXTREMITIES: Without significant clubbing or cyanosis, but mild lower extremity edematous changes wi th tenderness. NEUROLOGIC: No reported new neurological deficit, sensory or motor. IMPRESSION: 1. Abnormal CAT scan with possible esophageal lesion associated with nausea and dyspepsia. 2. Diarrhea of unclear etiology. The possibility of inflammatory bowel disease versus pseudomembran ous colitis to be kept in mind. 3. Past medical history including, but not limited to, hypothyroidism, deep vein thrombolysis and po ssible pulmonary embolus. SUGGESTION: 1. Agree with your plan. 2. Complete stool workup. 3. Proton pump inhibitors. 4. Endoscopic evaluation of the GI tract when the patient is more stable clinically due to the abnor mal findings of the CAT scan. Further recommendations to follow. Thank you for letting me participate in your patient's case management. Jumana Vicente MD cc: 14 TT: 08/17/2016 21:36:42 Confirmation # [id number] Dictation # [id number] dn
[2016-08-19] MEDS ORDERED: MethylPREDNISolone 40 mg Vial IV SCH (10:00)
== END 2016-08-17 12:45 | disposition home or self-care (01) | DRG 78 ==
LOC: C.ER 16:41 → C.9E 22:45 → C.6T 23:36
PROVIDERS: ADMIT Internal Medicine; ATTEND Internal Medicine
PROC: 0DB68ZX Excision of Stomach, Via Natural or Artificial Opening Endoscopic, Diagnostic (ICD-10-PCS; principal; 2016-08-15 08:36)
PROC: 0DJD8ZZ Inspection of Lower Intestinal Tract, Via Natural or Artificial Opening Endoscopic (ICD-10-PCS; 2016-08-16)
DX: I26.99 Other pulmonary embolism without acute cor pulmonale (principal); D68.51 Activated protein C resistance; J90 Pleural effusion, not elsewhere classified; K22.10 Ulcer of esophagus without bleeding; R04.2 Hemoptysis; I82.5Z2 Chronic embolism and thrombosis of unspecified deep veins of left distal lower extremity; K29.00 Acute gastritis without bleeding; K64.8 Other hemorrhoids; K58.9 Irritable bowel syndrome, unspecified; K63.89 Other specified diseases of intestine; J45.909 Unspecified asthma, uncomplicated; E03.9 Hypothyroidism, unspecified; F17.210 Nicotine dependence, cigarettes, uncomplicated; Z87.01 Personal history of pneumonia (recurrent); Z79.82 Long term (current) use of aspirin; Z79.01 Long term (current) use of anticoagulants

== ENCOUNTER 2016-09-20 13:54 | Emergency (ER) | payer MEDICAID ==
[2016-09-20 13:55] VITALS: BMI 30.6
[2016-09-20 14:34] VITALS: RESP 18; TEMP 97.8
[2016-09-20 15:38] LABS: BASO % 0.5 % (0.0-2.0); EOS # 0.3 K/uL (0.0-0.7); EOS % 3.5 % (0.0-4.0); HEMATOCRIT 42.7 % (35.0-51.0); LYMPH # 2.6 K/uL (1.0-4.3); LYMPH % 27.6 % (20.0-40.0); MEAN CELL VOLUME 90.1 fL (80.0-94.0); MEAN CORPUSCULAR HEMOGLOBIN 31.2 pg (27.0-31.0); MEAN CORPUSCULAR HGB CONC 34.6 g/dL (33.0-37.0); MEAN PLATELET VOLUME 10.7 fL (7.2-11.7); MONO # 0.6 K/uL (0.0-0.8); MONO % 6.3 % (0.0-10.0); NRBC % 0.1 % (0.0-2.0); RED CELL DISTRIBUTION WIDTH 13.3 % (11.5-14.5); WHITE BLOOD COUNT 9.2 K/uL (4.8-10.8)
[2016-09-20 15:43] LABS: CHLORIDE 97 mmol/L (98-107)
[2016-09-20 15:44] LABS: SODIUM 138 mmol/L (132-148)
[2016-09-20 15:46] LABS: BILIRUBIN,TOTAL 0.5 mg/dL (0.2-1.3); CARBON DIOXIDE 26 mmol/L (22-30); GFR AFRICAN-AMERICAN > 60; RBC URINE < 1 /hpf (0-3); URINE BILIRUBIN NEGATIVE (NEGATIVE); URINE BLOOD NEGATIVE (NEGATIVE); URINE COLOR Yellow (YELLOW); URINE GLUCOSE (UA) NORMAL (Normal); URINE KETONE NEGATIVE (NEGATIVE); URINE LEUKOCYTE ESTERASE NEG Leu/uL (Negative); URINE PROTEIN NEGATIVE (NEGATIVE); URINE UROBILINOGEN NORMAL mg/dL (0.2-1.0); WBC URINE 1 /hpf (0-5)
[2016-09-20 15:47] LABS: ALB/GLOB RATIO 1.3 (1.0-2.1); ALKALINE PHOSPHATASE 103 U/L (38-126); ALT/SGPT 42 U/L (21-72); AST/SGOT 27 U/L (17-59); BLOOD UREA NITROGEN 10 mg/dL (9-20); CALCIUM 8.9 mg/dl (8.6-10.4); GLUCOSE,RANDOM 82 mg/dL (75-110); TOTAL PROTEIN 7.6 g/dL (6.3-8.3)
--- NOTE | 2016-09-20 15:48 | RAD ---
HISTORY: COMPARISON: 08/12/2016 TECHNIQUE: Chest PA and lateral FINDINGS: LINES AND TUBES: None. LUNG AND PLEURA: The lungs are well inflated and clear. HEART AND MEDIASTINUM: The heart is not enlarged. The hilar and mediastinal contours are within normal limits. SKELETAL STRUCTURES: The bony structures are within normal limits for the patient's age. VISUALIZED UPPER ABDOMEN: Normal. OTHER FINDINGS: None. IMPRESSION: No active pulmonary disease.
[2016-09-20 15:51] LABS: INR 1.1
[2016-09-20] MEDS ORDERED: Iodixanol 320 MG/ML 100 ML BOTTLE IV ONE (16:22)
--- NOTE | 2016-09-20 17:23 | CT ---
PROCEDURE: CT Chest with contrast HISTORY: BACK PAIN, cough, h/o PE, pulm infarct COMPARISON: CTA chest from 09/06/2016 and chest radiographs from the same day TECHNIQUE: Contiguous axial images were obtained through the chest with intravenous contrast enhancement. Sagittal and coronal reconstructions were performed. IV contrast: 100 mL Visipaque Radiation dose (DLP): 840.68 mGy-cm. This CT exam was performed using one or more of the following dose reduction techniques: Automated exposure control, adjustment of the mA and/or kV according to patient size, and/or use of iterative reconstruction technique. FINDINGS: LUNGS: The lungs are well inflated and clear. There is redemonstration of an ovoid subpleural low-attenuation lesion demonstrating fluid density measuring 2.7 x 1.6 cm not significantly changed in size and appearance since the prior examination. Also noted is a stable 7 mm subpleural nodule in the left posterior lung base. There is no evidence of airspace disease. There is mild biapical pleural parenchymal scarring. There are no endobronchial lesions. MEDIASTINUM: The aorta is normal in caliber. The heart is normal in size. There is no pericardial effusion. There is no pathologic mediastinal or hilar lymphadenopathy PLEURA: There is interval mild decrease in size of moderate left pleural effusion. There is no right pleural effusion. No pneumothorax. BONES: No fracture. No destructive lesion. UPPER ABDOMEN: Grossly unremarkable. OTHER FINDINGS: None. IMPRESSION: 1. No significant interval change in size an appearance of cystic subpleural nodular lesion in the left lung base which could represent loculated fluid or necrosis in pulmonary infarction. Short-term interval follow-up is recommended to assess stability/resolution. 2. Improving left pleural effusion. 3. 7 mm subpleural nodule in the left posterior lung base. Follow-up CT scan in six-month interval is recommended to assess stability of this nodule.
[2016-09-20 17:36] VITALS: BP 125/84; PULSE 89; O2SAT 98
--- NOTE | 2016-09-20 18:00 | C.PDOC ---
History Of Present Illness 26 year old male presents to the emergency department with complaints of vague back discomfort and mild malaise for two days. Patient has a history of PE and resolving pulmonary effusion. He notes he was last seen two weeks ago by Dr. Peñaloza and a repeat CT scan shows improvement. Patient denies chest pain, shortness of breath, or other complaints at this time. Time Seen by Provider: 09/20/16 14:54 Chief Complaint (Nursing): Cough, Cold, Congestion History Per: Patient History/Exam Limitations: no limitations Onset/Duration Of Symptoms: Days (2 days) Current Symptoms Are (Timing): Still Present Quality: Other (discomfort ) Associated Symptoms: denies: Fever, Chills Reports Recently: Treated By A Physician Recent travel outside of the [place]: No Past Medical History Reviewed: Historical Data, Nursing Documentation, Vital Signs Vital Signs: Last Vital Signs Temp 97.8 F 09/20/16 14:20 Pulse 89 09/20/16 17:36 Resp 18 09/20/16 17:36 BP 125/84 09/20/16 17:36 Pulse Ox 98 09/20/16 18:01 - Medical History PMH: Asthma, Deep Vein Thrombosis (left calf/ right leg phlebitis), Hypothyroidism, Pneumonia, Pulmonary Embolism (This Admission 08/12/16) Surgical History: Tonsillectomy (1999) - [facility] Procedures EXCISION OF STOMACH, ENDO, DIAGN (08/12/16) INSPECTION OF LOWER INTESTINAL TRACT, ENDO (08/12/16) Family History: States: Unknown Family Hx - Social History Hx Alcohol Use: Yes (Socially.) Hx Substance Use: No - Immunization History Hx Tetanus Toxoid Vaccination: No Hx Influenza Vaccination: No Review Of Systems Constitutional: Positive for: Malaise (mild malaise ). Negative for: Fever, Chills Cardiovascular: Negative for: Chest Pain, Palpitations Gastrointestinal: Negative for: Nausea, Vomiting, Abdominal Pain, Diarrhea Musculoskeletal: Positive for: Back Pain (lower back discomfort ) Physical Exam - Physical Exam Appears: Non-toxic, No Acute Distress Skin: Warm, Dry Head: Atraumatic Eye(s): bilateral: Normal Inspection, PERRL, EOMI Oral Mucosa: Moist Neck: Supple Chest: Symmetrical, No Deformity Cardiovascular: Rhythm Regular Respiratory: Other (mild tubular bibasilar breath sounds ) Gastrointestinal/Abdominal: Soft, No Tenderness, No Distention, No Guarding, No Rebound Back: No CVA Tenderness, No Vertebral Tenderness, No Paraspinal Tenderness Extremity: Normal ROM, No Tenderness Neurological/Psych: Oriented x3 ED Course And Treatment - Laboratory Results Result Diagrams: 09/20/16 15:31 09/20/16 15:31 Lab Interpretation: Normal (d-dimer 451) O2 Sat by Pulse Oximetry: 98 (room air ) Reevaluation Time: 17:59 Reassessment Condition: Unchanged - Physician Consult Information Outcome Of Conversation: 1510 and 1730: d/w Dr. Peñaloza, pt's [employer]- ok to d/c home with outpatient f/u. Medical Decision Making Medical Decision Making: resolving PE/L pleural effusion, good compliance with Elaquis BID ? mild viral syndrome superimposed- pt has nebs @ home. ok for opt f/u. Disposition Doctor Will See Patient In The: Office Counseled Patient/Family Regarding: Studies Performed, Diagnosis - Disposition Referrals: Ari Peñaloza MD [Staff Provider] - Disposition: HOME/ ROUTINE Disposition Time: 18:00 Condition: GOOD Additional Instructions: continue regular regimen Normal eval today- resolving L pleural effusion Follow-up with Dr. Peñaloza- call to make an appointment. Instructions: Pleural Effusion (ED) Forms: [facility] ([place]) - Clinical Impression Clinical Impression: Chest discomfort, Pleural effusion - Scribe Statement The provider has reviewed the documentation as recorded by the Scribbrad Buchanan All medical record entries made by the Scribe were at my direction and personally dictated by me. I have reviewed the chart and agree that the record accurately reflects my personal performance of the history, physical exam, medical decision making, and the department course for this patient. I have also personally directed, reviewed, and agree with the discharge instructions and disposition.
== END 2016-09-20 18:07 | disposition home or self-care (01) ==
LOC: C.ER 13:54
DX: J90 Pleural effusion, not elsewhere classified (principal); R07.89 Other chest pain
CPT/HCPCS: 71020; 71260; 80053; 81001; 83880; 84484; 85025; 85378; 85610; 85730; 87040; 99284; Q9967